=== PATIENT | female | born 1955 | race Caucasian/White ===

== ENCOUNTER 2019-08-24 14:56 | Inpatient (IN) | payer SELFPAY ==
[~2019-08-24] VITALS: Ht 167.6 cm; Wt 38.8 kg
[~2019-08-24 14:56] MED LIST: ANTIDEPRESSANT; BENZ100A PO; CRUTCH4 USE; ESCI5; IBUP800 PO; LORA1 PO; OLAN10; PROACE100 PO; Prednisone20 MG PO; SYMBYAX; Zithromax250 MG PO; [UNRECOGNIZED DRUG - REMARK]
[2019-08-24 15:31] LABS: Source, Urine Voided
[2019-08-24 15:38] LABS: Blood, Urine 1+ (Neg); Glucose Qualitative, Urine Neg (Neg); Ketones, Urine 2+ (Neg); Leukocyte Esterase, Urine 2+ (Neg); Nitrite, Urine Neg (Neg); Protein, Urine 2+ (Neg); Specific Gravity, Urine 1.015 (1.003-1.022); Urobilinogen, Urine 1+ (Normal)
[2019-08-24 15:47] LABS: Appearance, Urine Hazy (Clear); Bilirubin, Urine 1+ (Neg); Color, Urine Yellow (P-Yellow)
[2019-08-24 15:54] LABS: Bacteria Many /hpf; Red Blood Cells, Urine Rare /hpf (0-2); Squamous Epithelial Cells Rare /hpf (Few)
[2019-08-24 15:55] LABS: Mucus Light (0-Heavy)
[2019-08-24 16:00] LABS: Hematocrit 43.1 % (33.0-51.0); Hemoglobin 12.5 g/dL (11.5-16.0); Mean Corpuscular HGB 26.4 pg (26.0-34.0); Mean Corpuscular Volume 91 fL (80-100); Platelet Count 215 K/mm3 (150-400); RDW Coefficient Variation 18.9 % (11.7-14.2); RDW Standard Deviation 61.6 fL (35.1-46.3); Red Blood Cell Count 4.73 M/mm3 (3.80-5.20); White Blood Cell Count 39.81 K/mm3 (4.00-11.30)
[2019-08-24 16:05] LABS: Mean Platelet Volume 13.2 fL (9.1-12.4)
[2019-08-24 16:15] LABS: Alanine Aminotransfer (ALT/SGP 14 U/L (12-78); Albumin, Blood 4.2 g/dL (3.4-5.0); Albumin/Globulin Ratio 1.1 (0.8-1.8); Alk Phos 75 U/L (50-136); Anion Gap 9 mmol/L (6-16); Aspartate Aminotrans (AST/SGOT 18 U/L (12-37); Bilirubin, Total 0.8 mg/dL (0.1-1.0); Blood Urea Nitrogen 25 mg/dL (8-24); CO2, Blood 25 mmol/L (21-32); Calcium, Blood 9.1 mg/dL (8.5-10.1); Chloride, Blood 103 mmol/L (98-108); Creatinine, Blood 0.86 mg/dL (0.40-1.00); Globulin, Blood 3.7 g/dL (2.2-4.0); Glomerular Filtration Rate >60 (60-); Glucose, Blood 141 mg/dL (70-99); Potassium, Blood 4.6 mmol/L (3.5-5.5); Sodium, Blood 137 mmol/L (136-145); Total Protein, Blood 7.9 g/dL (6.4-8.2)
[2019-08-24 16:43] LABS: BASOPHILS PERCENT MAN 0 % (0-2); EOSINOPHILS PERCENT MAN 0 % (0-6); LYMPHOCYTES % ATYPICAL MANUAL 3 % (0-0); LYMPHOCYTES ABSOLUTE MAN 29.85 K/mm3 (0.84-5.20); LYMPHOCYTES PERCENT MAN 72 % (21-46); MONOCYTES ABSOLUTE MAN 0.79 K/mm3 (0.16-1.47); MONOCYTES PERCENT MAN 2 % (4-13); NEUTROPHILS ABSOLUTE MAN 9.15 K/mm3 (1.96-9.15); SEG NEUTROPHILS PERCENT MAN 23 % (41-73); TOTAL CELLS COUNTED 100
[2019-08-24] MEDS ORDERED: Aspir 8181 MG PO (18:20)
[2019-08-25 05:08] LABS: BASOPHILS ABSOLUTE AUTO 0.09 K/mm3 (0.00-0.23); BASOPHILS PERCENT AUTO 0 % (0-2); EOSINOPHILS ABSOLUTE AUTO 0.11 K/mm3 (0.00-0.68); EOSINOPHILS PERCENT AUTO 0 % (0-6); Hematocrit 35.6 % (33.0-51.0); Hemoglobin 10.5 g/dL (11.5-16.0); Mean Corpuscular HGB 26.5 pg (26.0-34.0); Mean Corpuscular HGB Conc 29.5 g/dL (31.5-36.5); Mean Corpuscular Volume 90 fL (80-100); Platelet Count 191 K/mm3 (150-400); RDW Coefficient Variation 18.8 % (11.7-14.2); RDW Standard Deviation 61.2 fL (35.1-46.3); Red Blood Cell Count 3.96 M/mm3 (3.80-5.20); White Blood Cell Count 31.41 K/mm3 (4.00-11.30)
[2019-08-25 05:33] LABS: Anion Gap 6 mmol/L (6-16); Blood Urea Nitrogen 24 mg/dL (8-24); Bun/Creatinine Ratio 29.9 (12.0-20.0); CO2, Blood 28 mmol/L (21-32); Calcium, Blood 8.7 mg/dL (8.5-10.1); Chloride, Blood 103 mmol/L (98-108); Glomerular Filtration Rate >60 (60-); Glucose, Blood 94 mg/dL (70-99); IMMATURE GRAN ABSOLUTE AUTO 0.05 K/mm3 (0.00-0.10); IMMATURE GRAN PERCENT AUTO 0 % (0-1); LYMPHOCYTES ABSOLUTE AUTO 26.78 K/mm3 (0.84-5.20); LYMPHOCYTES PERCENT AUTO 85 % (21-46); MONOCYTES ABSOLUTE AUTO 0.68 K/mm3 (0.16-1.47); MONOCYTES PERCENT AUTO 2 % (4-13); Magnesium, Blood 2.3 mg/dL (1.6-2.4); Mean Platelet Volume 13.4 fL (9.1-12.4); NEUTROPHILS PERCENT AUTO 12 % (41-73); Phosphorus, Blood 3.8 mg/dL (2.5-4.9); Sodium, Blood 137 mmol/L (136-145)
--- NOTE | 2019-08-25 05:37 | NUR ---
SHIFT SUMMARY PT ER ADMIT THIS SHIFT LEUKOCYTOSIS, AND UTI. PT RECEIVED IV ABX WHILE IN THE ER. PER ER REPORT SHE COMPLAINED OF PYURIA. SHE HAS NOT HAD ANY COMPLAINTS OF PAIN FOR ME SINCE HER ADMISSION. ABD IS FIRM AND SEVERELY DISTENDED. SHE REPORTS NO BM FOR A WEEK. PT STARTED ON BOWEL CARE. PT IS A/OX4, PLESANT. VITALS ARE STABLE. ADMISSION COMPLETE. BED IN LOWEST POSITION, CALL LIGHT WITHIN REACH. WILL CONTINUE TO MONITOR AND REPORT TO ONCOMING RN.
--- NOTE | 2019-08-25 14:33 | NUR ---
CAME IN TO CHECK ON PT, SHE STATED SHE FEELS NAUSEATED AND HER BACK HURT. GAVE PT ZOFRAN PER EMAR. SHE DENIED TYLENOL FOR HER BACK. ALSO PROVIDED PT WITH COLD WASHCLOTH, FAN, AND HEATING PAD. TOLD PT SHE MAY WANT TO TRY MIRALAX AFTER ZOFRAN KICKS IN BECAUSE HER NAUSEA MAY BE RELATED TO NOT HAVING A BM FOR A WEEK. PT AGREED. WILL REASSESS NAUSEA AND PROVIDE MIRALAX.
--- NOTE | 2019-08-25 18:13 | NUR ---
SHIFT SUMMARY- NO ACUTE CHANGES T/O SHIFT. NO COMPAINTS OF PAIN BESIDES ACHING IN THE LOWER BACK. HEATING PAD PROVIDED, PT REFUSED TYLENOL. PT REPORTS SOME BURNING WITH URINATION BUT ALSO REPORTS THAT SHE FEELS IT IS GETTING BETTER, AND IS NO LONGER EXPERIENCING PYURIA. ZEFLEX ORDERED FOR UTI. ABD FERM, DISTENDED, AND TENDER. PT STATES NO BM IN A WEEK. MIRALAX ORDERED PRN. DOSE GIVEN AT APPROX 1645. PT REPORTED NAUSEA DURING SHIFT, PRN ZOFRAN PROVIDED. PT ALSO PREFERS MEDS CRUSHED IN APPLESAUCE. SHE STATES SHE CANNOT SWALLOW THEM WHOLE BECAUSE THEY ARE BIG AND SHE IS NOT USED TO IT. PT IS SBA TO BATHROOM. SALINE LOCKED. PT IS COOPERATIVE AND PLEASANT.
--- NOTE | 2019-08-25 18:25 | NUR ---
I CONCUR WITH THIS AUTOMOTIVE WHOLESALE PARTS ADVISOR DOCUMENTATION
[2019-08-26 05:16] LABS: BASOPHILS ABSOLUTE AUTO 0.05 K/mm3 (0.00-0.23); BASOPHILS PERCENT AUTO 0 % (0-2); EOSINOPHILS ABSOLUTE AUTO 0.03 K/mm3 (0.00-0.68); EOSINOPHILS PERCENT AUTO 0 % (0-6); Hematocrit 34.4 % (33.0-51.0); Mean Corpuscular HGB 25.8 pg (26.0-34.0); Mean Corpuscular HGB Conc 29.1 g/dL (31.5-36.5); Mean Corpuscular Volume 89 fL (80-100); Platelet Count 166 K/mm3 (150-400); RDW Coefficient Variation 18.6 % (11.7-14.2); RDW Standard Deviation 59.5 fL (35.1-46.3); Red Blood Cell Count 3.88 M/mm3 (3.80-5.20); White Blood Cell Count 24.48 K/mm3 (4.00-11.30)
[2019-08-26 05:32] LABS: Anion Gap 3 mmol/L (6-16); Blood Urea Nitrogen 21 mg/dL (8-24); Bun/Creatinine Ratio 28.1 (12.0-20.0); CO2, Blood 31 mmol/L (21-32); Calcium, Blood 8.3 mg/dL (8.5-10.1); Chloride, Blood 105 mmol/L (98-108); Creatinine, Blood 0.75 mg/dL (0.40-1.00); Glomerular Filtration Rate >60 (60-); Glucose, Blood 109 mg/dL (70-99); Sodium, Blood 139 mmol/L (136-145)
--- NOTE | 2019-08-26 05:32 | NUR ---
SHIFT SUMMARY PT HAS RESTED MOST OF THE NIGHT. PT HAD AN EPISODE OF NAUSEA WITH A LARGE AMOUNT OF EMESIS AT THE BEGINNING OF THE SHIFT. PT VOMITED ON THE FLOOR SO IT WAS NOT MEASURED. I ATTEMPTED TO GIVE PT HER PILLS AT HS, SHE ATTEMPTED TO TAKE THE STOOL SOFTNERS BUT IMMEDIATELY THREW THEM UP. SHE THEN REFUSED TO TAKE HER MEDICATIONS. MEDICATED WITH IV ZOFRAN X1 WITH EFFECT. PT HAS NOT HAD ANY MORE EPISODES OF N/V SINCE. PT REPORTS THAT SHE STILL HAS NOT HAD BM, DESPITE MIRALAX. ABD REMAINS FIRM AND DISTENDED. PT DENIES PAIN. VITALS ARE STABLE. OVERALL RESTFUL NIGHT FOR PT. POSSIBLE DC TODAY. BED IN LOWEST POSITION, CALL LIGHT WITHIN REACH. WILL CONTINUE TO MONITOR AND REPORT TO ONCOMING RN.
[2019-08-26 05:37] LABS: IMMATURE GRAN ABSOLUTE AUTO 0.03 K/mm3 (0.00-0.10); IMMATURE GRAN PERCENT AUTO 0 % (0-1); LYMPHOCYTES ABSOLUTE AUTO 20.11 K/mm3 (0.84-5.20); LYMPHOCYTES PERCENT AUTO 82 % (21-46); MONOCYTES ABSOLUTE AUTO 0.58 K/mm3 (0.16-1.47); MONOCYTES PERCENT AUTO 2 % (4-13); Mean Platelet Volume 13.1 fL (9.1-12.4); NEUTROPHILS ABSOLUTE AUTO 3.68 K/mm3 (1.96-9.15); NEUTROPHILS PERCENT AUTO 15 % (41-73)
--- NOTE | 2019-08-26 14:13 | NUR ---
Initial spiritual care note: Carli was pleasantly dismissive of pastoral care. Advised I would remain available.
--- NOTE | 2019-08-26 19:11 | NUR ---
SHIFT SUMMARY PT ALERT AND ORIENTED THIS SHIFT. PT INDEPENDENT IN THE ROOM. PT'S STOMACH DISTENDED AND TENDER THROUGHOUT THIS SHIFT. PT REPORTS NO BM FOR 7 DAYS. MIRILAX AND LACTALOSE ADMINISTERED PER EMAR. PT VOMITED 1X THIS AFTERNOON, MEDICATED WITH ZOFRAN. PT AMBULATED IN THE MOLINA TO HELP PROMOTE GI STIMULATION. PT CURRENTLY RESTING IN BED.
[2019-08-27 04:49] LABS: BASOPHILS ABSOLUTE AUTO 0.05 K/mm3 (0.00-0.23); BASOPHILS PERCENT AUTO 0 % (0-2); EOSINOPHILS ABSOLUTE AUTO 0.01 K/mm3 (0.00-0.68); EOSINOPHILS PERCENT AUTO 0 % (0-6); Hematocrit 35.3 % (33.0-51.0); Hemoglobin 10.5 g/dL (11.5-16.0); Mean Corpuscular HGB 26.7 pg (26.0-34.0); Mean Corpuscular HGB Conc 29.7 g/dL (31.5-36.5); Mean Corpuscular Volume 90 fL (80-100); Mean Platelet Volume 12.9 fL (9.1-12.4); Platelet Count 195 K/mm3 (150-400); RDW Coefficient Variation 18.5 % (11.7-14.2); RDW Standard Deviation 59.7 fL (35.1-46.3); Red Blood Cell Count 3.93 M/mm3 (3.80-5.20); White Blood Cell Count 27.23 K/mm3 (4.00-11.30)
[2019-08-27 04:51] LABS: IMMATURE GRAN ABSOLUTE AUTO 0.04 K/mm3 (0.00-0.10); IMMATURE GRAN PERCENT AUTO 0 % (0-1); LYMPHOCYTES ABSOLUTE AUTO 22.66 K/mm3 (0.84-5.20); LYMPHOCYTES PERCENT AUTO 83 % (21-46); MONOCYTES ABSOLUTE AUTO 0.52 K/mm3 (0.16-1.47); MONOCYTES PERCENT AUTO 2 % (4-13); NEUTROPHILS ABSOLUTE AUTO 3.95 K/mm3 (1.96-9.15); NEUTROPHILS PERCENT AUTO 15 % (41-73)
[2019-08-27 05:12] LABS: BASOPHILS PERCENT MAN 0 % (0-2); EOSINOPHILS PERCENT MAN 0 % (0-6); LYMPHOCYTES PERCENT MAN 90 % (21-46); MONOCYTES PERCENT MAN 0 % (4-13); NEUTROPHILS ABSOLUTE MAN 2.72 K/mm3 (1.96-9.15); SEG NEUTROPHILS PERCENT MAN 10 % (41-73); TOTAL CELLS COUNTED 100
[2019-08-27] MEDS ORDERED: CEPH500 PO (09:20)
[2019-08-27] MEDS ORDERED: SENNA PLUS (09:22)
[2019-08-27] MEDS ORDERED: MIRALAX17 GM PO (09:25)
[2019-08-27] MEDS ORDERED: HIGH POTENCY P1 EAC1 PO (09:25)
--- NOTE | 2019-08-27 10:44 | NUR ---
Pt resting in bed upon arrival. Pt reports 8/10 pain in her abdomen mainly due to pressure build up. Pt denies dyspnea and anxiety. Pt's abdomen is significantly distended and firm. Pt reports pain increases when pressing on belly. Pt reports living with roomates and is independent of her ADLs. Pt reports having children all of whom live in [facility]. Pt has not spoken with children in 2 years. Discussed plan for GI MD to consult and Pt is agreeable. Pt reports no concerns at this time. Spoke with Bedside RN Lani, discussed case, concerns, and relayed Pt's pain. Lani expresses concerns regarding Pt appearing significantly frail and cachetic. Palliative Care will remain available.
[2019-08-27 17:45] LABS: Free Thyroxine 1.14 ng/dL (0.70-1.60)
[2019-08-27 17:46] LABS: Thyroid Stimulating Hormone 3.63 uIU/mL (0.360-4.800)
--- NOTE | 2019-08-27 18:53 | NUR ---
SHIFT SUMMARY SANDEEP WAS VERY NAUSEOUS AND PAINFUL THIS SHIFT. THREW UP HER MORNING MEDS. CALLED DR DRUMMOND, GOT GI CONSULT. TO HAVE CT IN THE MORNING. CT AND DR DRUMMOND AWARE THAT PT MAY NOT BE ABLE TO HOLD DOWN CONTRAST. PALLIATIVE CARE VISITED. IV FENTANYL AND IV NAUSEA MEDS SOMEWHAT HELPFUL. NPO. MEMORY ISSUES NOTED, UNABLE TO RETRAIN NEW INFORMATION WELL. SOAP MONIQUE ENEMA DONE, NOT EFFECTIVE. SUPPOSITORY PLACED. IVF RUNNING. REPORT GIVEN TO JOON RN
--- NOTE | 2019-08-28 03:56 | NUR ---
PT continues with no significant BM. PT NPO for SBO & has AM CT abd pelvis with contrast rx. PT had small pellet of dark brown BM after soap suds enema & dulcolax supp. She was medicated withzofran & compazine prior to drinking CT prep & bowel care. Started on IV fluid with NPO status. PT continues weak malnourished wasting appearance. ABD firm distended but has more active bowel sounds . HX of prior bowel obstruction or ileus. No vomiting yet this shift.
--- NOTE | 2019-08-28 09:00 | NUR ---
DR KEMP STATES SURG IN FEW HOURS. KEEP NPO
--- NOTE | 2019-08-28 09:50 | NUR ---
PT PLEASANT COOP , PRESENTS A/O X3, SOME CONCRETE . SOME ABD PN. STATES IS OKAY. SEVERE ABD DISTENTION, TENDER PALP H/R REG, NO MURMER NOTED. NO TLE. LUNGS CLEAR, BUT DIM T/O. RESP EASY UNLABORED ON RA. BT HYPOACTIVE. ABD FIRM SEVERE LARGE. PT STATES NO BM 1 + WEEK. VOIDS SBA TO BATHROOM. PT STATES OKAY. NO OTHER CONCERNS AT THIS TIME.
--- NOTE | 2019-08-28 14:21 | NUR ---
Surgical site prepped with 2% Chlorhexidine cloth wipe. History, Chart, Medications and Allergies reviewed before start of procedure. Patient confirms NPO status and agrees with scheduled surgery. Pre-Op teaching done. Pt verbalizes understanding.
--- NOTE | 2019-08-28 15:47 | NUR ---
PT TO [id number]
--- NOTE | 2019-08-28 17:23 | NUR ---
PT PLEASANT TODAY. NO BM TODAY. IS PRESENTLY IN DAY SURG. DR KEMP HAS SEEN AND IS PERFORMING SURG. DR BOOTH HAS SEEN. WILL CALL REPORT TO VTC TECHNICIAN APPROPRIATE
--- NOTE | 2019-08-28 21:02 | NUR ---
ASSUMED CARE AT 2014 PT ARRIVED AT 2014. ORAL AIRWAY IN PLACE. O2 SAT 100%. BP STABE, SEE FLOW SHEET. NSR, HR 90'S. AT 2024 NRB DUE TO O2 SAT AT 82%. PT RECOVERED TO 100% ONCE PT WAS MOVING ALL EXTREMITIES AND MORE ALERT. ORAL AIRWAY REMOVED AT 2039. PT MEDICATED FOR NAUSEA AND PAIN. REMAINS ON NRB AT 15L. YE DRAINING DARK TEA URINE. OG CLAMPED AT THIS TIME.
--- NOTE | 2019-08-28 22:10 | NUR ---
REPORTED OFF TO SILVIANO RN ON SURGICAL FLOOR. PT PULLED OUT NG TUBE. O2 REQUIREMENTS INCREASING, WILL STAY ON UNIT UNTIL RESPIRATORY STATUS IMPROVES.
--- NOTE | 2019-08-28 22:49 | NUR ---
PT TRANSFERRING OUT TO ROOM 208 CALL TO PRESTON SHORE TO NOTIFY HER OF OXYGEN REQUIREMENTS. CURRENTLY ON 6L VIA OXYMIZER WITH BIOX 97%. MEDICATED WITH 12.5MCG OF FENTANYL PER POST-ANESTHESIA ORDERS. PT IS ALERT AND ORIENTED AND ABLE TO FOLLOW COMMANDS. VERY WEAK COUGH D/T PAIN. HOWEVER, PT IS ABLE TO TAKE DEEP BREATHS UPON COMMAND. BASELINE IS ROOM AIR; HOWEVER, REQUIRING OXYGEN AT THIS TIME WITH FLUCTUATIONS IN OXYGEN SATURATIONS. LUNG SOUNDS REMAIN COARSE T/O ALL LOBES. VSS; SEE FLOWSHEET.
--- NOTE | 2019-08-28 23:35 | NUR ---
2300-PT ARRIVED TO ROOM FROM PACU S/P RIGHT LARRY COLECTOMY. PT IS ALERT BUT DOES DOZE OCCASIONALY. PAIN TOLERABLE, NO N/V. ABD WITH PROVENA WOUND VAC WITH SCANT SS DRAINAGE WHICH WAS OUTLINED. PT DID PULL OUT NGT IN PACU. LS ARE VERY COARSE AND WET, CURRENTLY ON 6L OXYMIZER, ENCOURAGED COUGHING, INSTRUCTED HOW TO SPLINT ABD. I.S. GIVEN AND AT BEDSIDE. 5-NEEDED TO INCREASE OXYGEN TO 8L, CALLED KERVIN PAPER MACHINE OPERATOR AND INFORMED ON CHANGE, ORDER OBTAINED FOR BD PROTOCOL. RT WAS IN ROOM ASSESSING PT AT THIS TIME [id number] GOING AT THIS TIME. O2 SATS 98%
--- NOTE | 2019-08-29 01:27 | NUR ---
ASSUMED CARE OF PT, REPORT REC FROM PRESTON SHORE. PT SLEEPING IN BED, NO DISTRESS NOTED. RESP EVEN, PT W/WEAK COUGH, SATS 99% ON 8L OXYMIZER. PLAN TO TITRATE O2 PT NADER. WILL CONT TO MONITOR AND TX PER ORDERS.
--- NOTE | 2019-08-29 02:40 | NUR ---
O2 SATS: PT SLEEPING, SATS 82% ON 7LOXYMIZER. PT AWAKENS EASILY. O2 INCREASED UP TO 10L, SATS VERY SLOWLY INCREASED TO 86%. RT CALLED IN TO ROOM. NONREBREATHER PLACED @ 15LO2. SATS SLOWLY INC AFTER APPX 3-5 MIN TO 90-93% CALL PLACED TO MD, NEW ORDER FOR ABX, SX AND BIPAP PER RT.
[2019-08-29 02:51] LABS: PCO2 Arterial 50.5 mmHg (35-45); PO2 Arterial 61.2 mmHg (80-100); pH Blood Arterial 7.36 (7.35-7.45)
--- NOTE | 2019-08-29 03:10 | NUR ---
RT IN ROOM, REPOSITIONED PT, SATS INC TO 94% VIA 6-8L OXYMIZER, SATS SLOWLY DEC TO 84% VIA 15L NON REBREATHER. CPAP PLACED PER RT W/12L BLEED IN, SATS 92-94% HOSPITALIST UPDATED, VITALS AND I/O REVIEWED. NEW ORDER FOR CXR, LASIX AND AM LABS. WILL CONT TO CLOSELY MONITOR.
[2019-08-29 04:55] LABS: BASOPHILS ABSOLUTE AUTO 0.09 K/mm3 (0.00-0.23); BASOPHILS PERCENT AUTO 0 % (0-2); EOSINOPHILS PERCENT AUTO 0 % (0-6); Hematocrit 37.9 % (33.0-51.0); Hemoglobin 11.1 g/dL (11.5-16.0); IMMATURE GRAN ABSOLUTE AUTO 0.04 K/mm3 (0.00-0.10); IMMATURE GRAN PERCENT AUTO 0 % (0-1); LYMPHOCYTES ABSOLUTE AUTO 33.88 K/mm3 (0.84-5.20); LYMPHOCYTES PERCENT AUTO 88 % (21-46); MONOCYTES PERCENT AUTO 1 % (4-13); Mean Corpuscular HGB 26.6 pg (26.0-34.0); Mean Corpuscular HGB Conc 29.3 g/dL (31.5-36.5); Mean Corpuscular Volume 91 fL (80-100); Mean Platelet Volume 12.6 fL (9.1-12.4); NEUTROPHILS ABSOLUTE AUTO 4.02 K/mm3 (1.96-9.15); NEUTROPHILS PERCENT AUTO 11 % (41-73); Platelet Count 258 K/mm3 (150-400); RDW Coefficient Variation 18.8 % (11.7-14.2); RDW Standard Deviation 60.7 fL (35.1-46.3); Red Blood Cell Count 4.18 M/mm3 (3.80-5.20); White Blood Cell Count 38.33 K/mm3 (4.00-11.30)
[2019-08-29 05:14] LABS: Alanine Aminotransfer (ALT/SGP 15 U/L (12-78); Albumin, Blood 2.3 g/dL (3.4-5.0); Albumin/Globulin Ratio 0.9 (0.8-1.8); Alk Phos 43 U/L (50-136); Anion Gap 9 mmol/L (6-16); Aspartate Aminotrans (AST/SGOT 22 U/L (12-37); Bilirubin, Total 0.5 mg/dL (0.1-1.0); Blood Urea Nitrogen 21 mg/dL (8-24); CO2, Blood 24 mmol/L (21-32); Calcium, Blood 7.3 mg/dL (8.5-10.1); Chloride, Blood 104 mmol/L (98-108); Creatinine, Blood 0.68 mg/dL (0.40-1.00); Globulin, Blood 2.6 g/dL (2.2-4.0); Glomerular Filtration Rate >60 (60-); Glucose, Blood 171 mg/dL (70-99); Phosphorus, Blood 3.2 mg/dL (2.5-4.9); Potassium, Blood 4.7 mmol/L (3.5-5.5); Sodium, Blood 137 mmol/L (136-145); Total Protein, Blood 4.9 g/dL (6.4-8.2)
--- NOTE | 2019-08-29 06:38 | NUR ---
POD 1 S/P LARRY COLECTOMY. PT CONT TO HAVE LOW O2 SATS, REQ 10L VIA CPAP TO MAINTIAN SATS >90%. LASIX GIVEN PER ORDERS, PT HAD 680ML URINE OUT AFTER LASIX GIVEN. URINE METAL CAN INSPECTOR IN COLOR THIS AM. VALENTE DRESSING INTACT W/APPX DIME SIZED AREA OF SHADOWING NOTED; SEAL AND SX MAINTAINED. BT HYPO, PT DENIED N/V/FLATUS. PAIN MGD PER EMAR W/REP RELIEF. PT NPO PER ORDERS, CLINIMIX CONT. CONT OX IN PLACE, WILL CONT TO MONITOR UNTIL REP GIVEN TO ONCOMING RN.
--- NOTE | 2019-08-29 09:44 | NUR ---
08/29/19 0944 Kym Phan VERIFICATIONS: EDIT CHART.
--- NOTE | 2019-08-29 11:12 | NUR ---
CALL TO DR DRUMMOND RE: ORDER FOR PO KEFLEX, PATIENT IS NPO AFTER ABD SURGERY. HE WILL SEE PATIENT.
--- NOTE | 2019-08-29 13:29 | NUR ---
Pt resting in bed upon arrival. Pt reports 8/10 pain from surgical site. Pt appears withdrawn and does not engage in conversation. Pt reports having children but denies need to contact. Received verbal permission to speak with friend Osmin and provide update. Pt reports no other concerns at this time. Called and spoke with Osmin. Provided update and answered questions. Inquired about Pt's children. Kayodefarooqmarzena reports Carli (Pt) has lived with her for over 6 years and there has been no communication between Pt and her sons. Osmin expresses appreciation of call. Spoke with Dr Livingston and discussed case. Spoke with Bedside PRESTON Jarvis and discussed case.
--- NOTE | 2019-08-29 17:54 | NUR ---
SHIFT SUMMARY PATIENT HAS DENIED ABD PAIN OR NAUSEA. C/O BACK PAIN, PATIENT REPOSITIONED AND K PAD APPLIED. ABD DRESSING D&I. DENIES SOB. O2 @ 7.5 L PER OXIMIZER; BIOX 95%. CLINIMIX INFUSING PER ORDER. FC PATENT AND DRAINING. CONT TO MONITOR.
--- NOTE | 2019-08-29 20:30 | NUR ---
PT WAS MEDICATED WITH 25MCG FENT. PT REMAINED AWAKE BUT OXYGEN SATS DROPPED TO 84%. TITRATED UP TO 15L BLEED IN TO CPAP TO MAINTAIN SPO2 >90. DID CALL RT AND INFORMED OF CHANGE. WILL CONT TO MONITOR. PT WAKES EASILY. STATES PAIN IS BETTER.
--- NOTE | 2019-08-30 01:51 | NUR ---
PT RESTING WELL. ABLE TO TITRATE THE OXYGEN BACK DOWN TO 6L BLEED IN ON CPAP.
--- NOTE | 2019-08-30 03:30 | NUR ---
SUMMARY PT DID FAIR DURING NIGHT. PAIN WAS MANAGED WITH 25MCG OF FENT HOWEVER IT CAUSED A DROP IN SPO2. WAS ABLE TO TITRATE OXYGEN BACK DOWN TO 4L BLEED IN CPAP. TRYING TO MANANGE PAIN WITH REPOSITIONING OR HEAT. HAS DENIED N/V. CONT IV CLINIMIX, NPO. ENCOURAGED IS, TCDB AND MOBILITY. CALL LIGHT IN REACH, WILL CONT TO MONITOR T/O REST OF SHIFT AND WILL REPORT OFF.
[2019-08-30 04:28] LABS: Hemoglobin 9.6 g/dL (11.5-16.0); Mean Corpuscular HGB 26.2 pg (26.0-34.0); Mean Corpuscular HGB Conc 29.1 g/dL (31.5-36.5); Mean Corpuscular Volume 90 fL (80-100); Mean Platelet Volume 12.5 fL (9.1-12.4); Platelet Count 166 K/mm3 (150-400); RDW Coefficient Variation 18.7 % (11.7-14.2); RDW Standard Deviation 61.1 fL (35.1-46.3); Red Blood Cell Count 3.67 M/mm3 (3.80-5.20); White Blood Cell Count 30.65 K/mm3 (4.00-11.30)
[2019-08-30 05:21] LABS: BAND PERCENT MAN 3 % (0-8); BASOPHILS PERCENT MAN 0 % (0-2); EOSINOPHILS PERCENT MAN 0 % (0-6); LYMPHOCYTES ABSOLUTE MAN 24.52 K/mm3 (0.84-5.20); LYMPHOCYTES PERCENT MAN 80 % (21-46); METAMYELOCYTE PERCENT MAN 1 % (0-0); MONOCYTES ABSOLUTE MAN 1.22 K/mm3 (0.16-1.47); MONOCYTES PERCENT MAN 4 % (4-13); NEUTROPHILS ABSOLUTE MAN 4.59 K/mm3 (1.96-9.15); SEG NEUTROPHILS PERCENT MAN 12 % (41-73); TOTAL CELLS COUNTED 100
--- NOTE | 2019-08-30 16:39 | NUR ---
FC D/C'D. ATTENDS [facility]. PATIENT DENIES PAIN WITH TURNING.
--- NOTE | 2019-08-30 20:17 | NUR ---
SHIFT SUMMARY PATIENT MORE ALERT AND STRONGER TODAY. SATS 94% ON 2L PER OXIMIZER. C&DB ENCOURAGED. COCCYX AND HEELS CLEAR, HEELS FLOATED. PATIENT TAKING CL FOR DINNER W/O C/O. PATIENT AGREEABLE TO OOB TOMORROW. REQUESTED DAY RN OBTAIN ORDER FOR PT CONSULT. NO C/O AT THIS TIME.
[2019-08-31 04:42] LABS: Hematocrit 27.4 % (33.0-51.0); Hemoglobin 8.3 g/dL (11.5-16.0); Mean Corpuscular HGB 27.2 pg (26.0-34.0); Mean Corpuscular HGB Conc 30.3 g/dL (31.5-36.5); Mean Corpuscular Volume 90 fL (80-100); Mean Platelet Volume 12.5 fL (9.1-12.4); Platelet Count 149 K/mm3 (150-400); RDW Coefficient Variation 18.9 % (11.7-14.2); RDW Standard Deviation 61.7 fL (35.1-46.3); Red Blood Cell Count 3.05 M/mm3 (3.80-5.20); White Blood Cell Count 22.38 K/mm3 (4.00-11.30)
[2019-08-31 05:01] LABS: Anion Gap 3 mmol/L (6-16); Blood Urea Nitrogen 24 mg/dL (8-24); Bun/Creatinine Ratio 41.9 (12.0-20.0); CO2, Blood 31 mmol/L (21-32); Calcium, Blood 7.8 mg/dL (8.5-10.1); Chloride, Blood 103 mmol/L (98-108); Creatinine, Blood 0.57 mg/dL (0.40-1.00); Glomerular Filtration Rate >60 (60-); Glucose, Blood 110 mg/dL (70-99); Potassium, Blood 3.8 mmol/L (3.5-5.5); Sodium, Blood 137 mmol/L (136-145)
[2019-08-31 05:50] LABS: BASOPHILS PERCENT MAN 0 % (0-2); EOSINOPHILS PERCENT MAN 0 % (0-6); LYMPHOCYTES ABSOLUTE MAN 18.57 K/mm3 (0.84-5.20); LYMPHOCYTES PERCENT MAN 83 % (21-46); MONOCYTES ABSOLUTE MAN 0.22 K/mm3 (0.16-1.47); MONOCYTES PERCENT MAN 1 % (4-13); NEUTROPHILS ABSOLUTE MAN 3.58 K/mm3 (1.96-9.15); SEG NEUTROPHILS PERCENT MAN 16 % (41-73); TOTAL CELLS COUNTED 100
--- NOTE | 2019-08-31 05:51 | NUR ---
SHIFT SUMMARY POD 3 W/ NO ACUTE CHANGES T/O SHIFT. A/O W/VSS, SPO2 AT 94% ON 2L. DENIED PAIN OR NEED FOR ANY PAIN MEDICATION. REPOSITIONED FREQUENTLY DURING NIGHT. 2 INCONT VOIDS, ATTENDS CHANGED PRN. NADER SMALL AMOUNTS OF CL; CLINIMIX INFUSING PER ORDERS. APPEARS TO HAVE SLEPT WELL T/O SHIFT. WILL DISCUSS OBTAINING PT/OT EVALUATION WITH DAY NURSE, PER PATIENT REQUEST. PT IS CURRENTLY RESTING IN BED WITH CALL LIGHT IN REACH. WILL CONT TO MONITOR AND GIVE REPORT TO ONCOMING RN.
--- NOTE | 2019-08-31 07:13 | NUR ---
ASSUMED PATIENT CARE. PATIENT SLEEPING COMFORTABLY IN BED, NO SIGNS OF ACUTE DISTRESS, WCTM.
--- NOTE | 2019-08-31 18:01 | NUR ---
NO ACUTE EVENTS THIS SHIFT. PATIENT HAS SHOWN SLOW IMPROVEMENT IN PO INTAKE OVER COURSE OF SHIFT, NOW ON FULL LIQUID DIET. PATIENT CONTINUES TO HAVE INCONTINENT VOIDS AND SMALL BOWEL MOVEMENTS. NO NEW DISCHARGE NOTED AT SURGICAL SITE. HYPOACTIVE BOWEL SOUNDS PRESENT. PLAN IS TO CONTINUE TO ENCOURAGE PO INTAKE AND POTENTIAL DISCHARGE TO SNF.
--- NOTE | 2019-08-31 18:58 | NUR ---
RELINQUISHED PATIENT CARE.
--- NOTE | 2019-09-01 03:08 | NUR ---
SHIFT SUMMARY A/O, ABLE TO MAKE NEEDS KNOWN. COOPERATIVE WITH CARE. ANSWERS QUESTIONS APPROPRIATELY. NO C/O PAIN, STATES MILD DISCOMFORT TO ABDOMEN; HOWEVER DECLINES NEED FOR PHARMALOGIC INTERVENTION. REMAINS ON 2L VIA OXYMIZER, SPO2 >90%; RESPIRATIONS EVEN WITH EQUAL RISE/FALL. MOIST/WEAK/OCCASIONALLY PRODUCTIVE COUGH NOTED. APPEARED TO REST MUCH OF SHIFT. NO ACUTE CHANGES NOTED OVERNIGHT. BED IN LOWEST POSITION. CALL LIGHT AND BELONGINGS WITHIN REACH. WCTM. REPORT TO ONCOMING RN.
[2019-09-01 12:14] LABS: Percent Saturation 7.9 % (15.0-50.0)
--- NOTE | 2019-09-01 17:12 | NUR ---
SHIFT SUMMARY PT HAS DONE WELL THOUGH THE DAY. MINIMAL PAIN NOTED. TOLERATING PO INTAKE. DIET WILL BE INCREASED TO [facility] FOR DINNER. PT IS PASSING STOOL & FLATUS. SHE DENIES NAUSEA. PO FLUIDS ENC. Q2 TURNS & ATTENDS CHANGES PROVIDED. BED BATH, LOTION AND LINEN CHANGED TODAY. CLINIMIX D/C'D PER HOSP ORDERS. VALENTE DRSG REMAINS DRY/INTACT. CALL LIGHT IN REACH, TM
[2019-09-02 04:14] LABS: BASOPHILS ABSOLUTE AUTO 0.03 K/mm3 (0.00-0.23); BASOPHILS PERCENT AUTO 0 % (0-2); EOSINOPHILS ABSOLUTE AUTO 0.07 K/mm3 (0.00-0.68); EOSINOPHILS PERCENT AUTO 0 % (0-6); Hematocrit 27.9 % (33.0-51.0); Mean Corpuscular HGB 26.3 pg (26.0-34.0); Mean Corpuscular HGB Conc 28.7 g/dL (31.5-36.5); Mean Corpuscular Volume 92 fL (80-100); Mean Platelet Volume 12.2 fL (9.1-12.4); Platelet Count 160 K/mm3 (150-400); RDW Standard Deviation 63.8 fL (35.1-46.3); Red Blood Cell Count 3.04 M/mm3 (3.80-5.20); White Blood Cell Count 17.23 K/mm3 (4.00-11.30)
[2019-09-02 04:21] LABS: IMMATURE GRAN ABSOLUTE AUTO 0.04 K/mm3 (0.00-0.10); IMMATURE GRAN PERCENT AUTO 0 % (0-1); LYMPHOCYTES ABSOLUTE AUTO 13.56 K/mm3 (0.84-5.20); LYMPHOCYTES PERCENT AUTO 79 % (21-46); MONOCYTES PERCENT AUTO 2 % (4-13); NEUTROPHILS ABSOLUTE AUTO 3.13 K/mm3 (1.96-9.15); NEUTROPHILS PERCENT AUTO 18 % (41-73)
--- NOTE | 2019-09-02 05:23 | NUR ---
SHIFT SUMMARY HAS RESTED WELL WITH NO ACUTE CHANGES NOTED THROUGHOUT SHIFT. CONTINUES TO BE AAO X3, PURCELL, FOLLOWS ALL COMMANDS. HAS RECEIVED PO PAIN MEDS X1 THIS SHIFT AND DENIES PAIN AT THIS TIME. DRESSING TO RIGHT HIP C/D/I. TURN Q2HRS OFFERED, BUT PT REFUSED. DENIES FURTHER NEEDS OR WANTS AT THIS TIME. SAFETY MEASURES IN PLACE. WILL GIVE HAND OFF TO ONCOMING SHIFT USING SBAR DURING BEDSIDE REPORT.
--- NOTE | 2019-09-02 05:33 | NUR ---
SHIFT SUMMARY HAS RESTED WELL WITH NO ACUTE CHANGES NOTED THROUGHOUT SHIFT. CONTINUES TO BE AAO X3, PURCELL, FOLLOWS ALL COMMANDS. HAS NOT RECIEVED ANY PAIN MEDS THIS SHIFT AND DENIES PAIN AT THIS TIME. DRESSING TO MIDLINE WITH VALENTE IN PLACE. TURN Q2HRS FPR COMFORT. DENIES FURTHER NEEDS OR WANTS AT THIS TIME. SAFETY MEASURES IN PLACE. WILL GIVE HAND OFF TO ONCOMING SHIFT USING SBAR DURING BEDSIDE REPORT.
--- NOTE | 2019-09-02 13:37 | NUR ---
PATIENT ON OXYGEN HERE AND NOT ON AT HOME. ASKED IF NEEDS HOME O2 EVAL. STS YES. WILL ORDER.
[2019-09-02] MEDS ORDERED: LACT PO (14:35)
--- NOTE | 2019-09-02 15:17 | NUR ---
AWAITING HOME O2 EVAL. PATIENT DESATURATED GOING TO BATHROOM AND DOES NOT NORMALLY USE OXYGEN AT HOME. ATTEMPT TO MAKE PCP APPT AT [facility] AND VOICE MAIL FOR OFFICE SAID LEAVE A MESSAGE.
--- NOTE | 2019-09-02 16:24 | NUR ---
REVIEW D'C W/PATIENT. AWARE HAS MEDS AT [facility] AND REVIEW WHAT THEY ARE. AWARE NEEDS TO GO TO [facility] TO SIGN UP FOR INSURANCE. THIS RN UNABLE TO MAKE F/U APPT AT [facility] HAVE CALLED 3 TIMES AND SAYS "PLEASE LEAVE A MESSAGE". UNABLE TO ASK ABOUT SLIDING SCALE PAY ETC. PATIENT HAS NUMBER FOR AND WILL CALL TOMORROW FOR F/U APPT. AWARE TO KEEP DORA CLEAN AND DRY. NO SIGNS OF INFECTION OR DRAINAGE. WANTS TO WAIT TILL RIDE GETS HERE BEFORE GETTING DRESSED WHICH WILL BE ABOUT 1730.
--- NOTE | 2019-09-02 17:14 | NUR ---
Pt resting in bed upon arrival. Offered therapeutic listening and encouraged Pt to discuss concerns and fears. Pt reports just being happy to discharge from hospital and to go home. Encouraged Pt to consider the importance of her cancer and to follow up with oncology and establish with PCP. Pt's level of understanding is low. Pt reports no concerns at this time. Spoke with Bedside RN Noemi and discussed case. Noemi reports Pt will be picked up by room mate and she will encouraged follow up and establishing with PCP and insurance. Reviewed Tahira Pack's note. Plan is for her to follow up later this week with Pt. Spoke with Dr Livingston and discussed case. Palliative Care will remain available.
--- NOTE | 2019-09-02 17:54 | NUR ---
VALERIA ROE WILL F/U W/PATIENT TO MAKE SURE SHE GETS PCP APPT AND ONCOLOGY F/U.
== END 2019-09-02 18:09 | disposition home or self-care (01) | DRG 330 ==
LOC: ER 14:56 → MEDS 18:01 → ER 20:44 → MEDS 21:11 → ENPENDDIS 08-27 09:00 → SURS 08-28 09:11 → MEDS 08-28 09:11 → SURS 08-28 18:10
PROVIDERS: Emergency Medicine; Internal Medicine; Internal Medicine Gastroenterology; Surgery; ADMIT Internal Medicine
PROC: 0DTF0ZZ Resection of Right Large Intestine, Open Approach (ICD-10-PCS; principal; 2019-08-28 14:30)
DX: C18.9 Malignant neoplasm of colon, unspecified (principal); Z68.1 Body mass index [BMI] 19.9 or less, adult; R18.8 Other ascites; J44.9 Chronic obstructive pulmonary disease, unspecified; Z87.891 Personal history of nicotine dependence; F31.9 Bipolar disorder, unspecified; K59.09 Other constipation; K63.89 Other specified diseases of intestine; C76.8 Malignant neoplasm of other specified ill-defined sites
CPT/HCPCS: 31720; 36415; 36600; 71046; 74019; 74177; 80048; 80053; 81001; 82330; 82607; 82728; 82746; 82803; 83540; 83550; 83690; 83735; 83880; 84100; 84439; 84443; 85025; 87077; 87086; 87186; 88309; 94640; 94660; 94760; 94761; 94762; 96361; 96365-59; 96375; 96376; 97110; 97116; 97161; 97530; 99284-25; A9270-GY; G0378; J0330; J0694; J0696; J0780; J1650; J1940; J2250; J2405; J2710; J3010; J7120; Q9967; U0002

== ENCOUNTER 2019-10-25 17:54 | Inpatient (IN) | payer SELFPAY ==
[~2019-10-25] VITALS: Ht 167.6 cm; Wt 44.3 kg
[~2019-10-25 17:54] MED LIST changes: +Aspir 8181 MG PO; +CEPH500 PO; +DOCUZEN 8.6-501 EACH PO; +HIGH POTENCY P1 EAC1 PO; +LACT PO; +MIRALAX17 GM PO
[2019-10-25 18:36] LABS: Hematocrit 39.8 % (33.0-51.0); Hemoglobin 11.8 g/dL (11.5-16.0); Mean Corpuscular HGB 27.3 pg (26.0-34.0); Mean Corpuscular HGB Conc 29.6 g/dL (31.5-36.5); Mean Corpuscular Volume 92 fL (80-100); Platelet Count 276 K/mm3 (150-400); RDW Coefficient Variation 16.3 % (11.7-14.2); RDW Standard Deviation 55.5 fL (35.1-46.3); Red Blood Cell Count 4.33 M/mm3 (3.80-5.20); White Blood Cell Count 25.29 K/mm3 (4.00-11.30)
[2019-10-25 19:07] LABS: Alanine Aminotransfer (ALT/SGP 17 U/L (12-78); Albumin/Globulin Ratio 1.2 (0.8-1.8); Alk Phos 75 U/L (50-136); Anion Gap 4 mmol/L (6-16); Aspartate Aminotrans (AST/SGOT 13 U/L (12-37); Bilirubin, Total 0.5 mg/dL (0.1-1.0); Blood Urea Nitrogen 31 mg/dL (8-24); Bun/Creatinine Ratio 37.1 (12.0-20.0); CO2, Blood 29 mmol/L (21-32); Calcium, Blood 9.6 mg/dL (8.5-10.1); Chloride, Blood 108 mmol/L (98-108); Creatinine, Blood 0.84 mg/dL (0.40-1.00); Globulin, Blood 3.2 g/dL (2.2-4.0); Glomerular Filtration Rate >60 (60-); Glucose, Blood 101 mg/dL (70-99); Potassium, Blood 4.3 mmol/L (3.5-5.5); Sodium, Blood 141 mmol/L (136-145); Total Protein, Blood 7.2 g/dL (6.4-8.2); Troponin I <0.015 ng/mL (0.000-0.040)
[2019-10-25 19:17] LABS: BASOPHILS PERCENT MAN 0 % (0-2); EOSINOPHILS PERCENT MAN 0 % (0-6); LYMPHOCYTES ABSOLUTE MAN 16.18 K/mm3 (0.84-5.20); LYMPHOCYTES PERCENT MAN 64 % (21-46); MONOCYTES ABSOLUTE MAN 0.75 K/mm3 (0.16-1.47); MONOCYTES PERCENT MAN 3 % (4-13); NEUTROPHILS ABSOLUTE MAN 8.34 K/mm3 (1.96-9.15); SEG NEUTROPHILS PERCENT MAN 33 % (41-73); TOTAL CELLS COUNTED 100
[2019-10-25 21:45] LABS: Source, Urine Catheter
[2019-10-25 21:48] LABS: Bilirubin, Urine Neg (Neg); Blood, Urine Neg (Neg); Glucose Qualitative, Urine 3+ (Neg); Ketones, Urine Neg (Neg); Leukocyte Esterase, Urine Neg (Neg); Nitrite, Urine Neg (Neg); Protein, Urine 2+ (Neg); Specific Gravity, Urine 1.025 (1.003-1.022); Urobilinogen, Urine NORM (Normal)
--- NOTE | 2019-10-25 21:54 | NUR ---
ARRIVED TO FLOOR PT TO RM 303 AROUND 2141 BY STRETCHER. RECIEVED REPORT BY ADAIR CARUSO IN ER. PT 1 ASSIST TRANSFER TO BED. VERY FEARFUL & SLOW TO RESPOND TO QUESTIONS. ORIENTED TO CALL LIGHT & WILL MONITOR.
[2019-10-25 22:05] LABS: Appearance, Urine Clear (Clear); Color, Urine Yellow (P-Yellow)
[2019-10-25 22:06] LABS: Bacteria Not Seen /hpf; Hyaline Casts 0-2 /lpf (0-2); Red Blood Cells, Urine Not Seen /hpf (0-2); Squamous Epithelial Cells Few /hpf (Few); White Blood Cells, Urine Rare /hpf (0-5)
--- NOTE | 2019-10-26 05:46 | NUR ---
SHIFT SUMMARY DEVELOPMENTALLY DELAYED. APPEARS FEARFUL. AOX2; UNAWARE DATE, PRESIDENT (STATES IT'S MARY CARMEN), BUILDING. ABLE TO STATE TOWN & NAME/BIRTHDATE. VERY SLOW TO RESPOND TO QUESTIONS. DOESNT ALWAYS ANSWER QUESTIONS OR FOLLOW DIRECTIONS. AT TIMES PT STARES BLANKLY AT STAFF AFTER ASKING QUESTION & WILL NOT RESPOND. REPORTS ALLOVER ABD TENDERNESS W/PALPATION, HOWEVER CANT RATE PAIN LEVEL. NO S/S OF N/V OR DYSPNEA. STATES ITS BEEN OVER 1 WK SINCE SHE'S HAD A BM, MEDICATED W/BOWEL CARE MEDS & NO BM SO FAR, WILL MONITOR. PT TOLERATED 1 JELLO WELL. REPORTS LOSING "MORE THEN 20LBS" & STATES SHE DOESN'T FEEL HUNGRY. WHEN ASKED IF SHE HAS FAMILY IN TOWN TO HELP HER SHE REPORTS HER LANDLORD HELPS, OTHERWISE HER KIDS LIVE IN [place]. RECEIVING CLINIMIX. CALL LIGHT IN REACH & BED ALARM ON FOR SAFETY. WCTM.
[2019-10-26 08:25] LABS: Hematocrit 34.4 % (33.0-51.0); Hemoglobin 10.3 g/dL (11.5-16.0); Mean Corpuscular HGB 27.4 pg (26.0-34.0); Mean Corpuscular HGB Conc 29.9 g/dL (31.5-36.5); Mean Corpuscular Volume 92 fL (80-100); Mean Platelet Volume 12.6 fL (9.1-12.4); Platelet Count 217 K/mm3 (150-400); RDW Standard Deviation 54.2 fL (35.1-46.3); Red Blood Cell Count 3.76 M/mm3 (3.80-5.20); White Blood Cell Count 18.79 K/mm3 (4.00-11.30)
[2019-10-26 08:44] LABS: Alanine Aminotransfer (ALT/SGP 14 U/L (12-78); Albumin, Blood 3.1 g/dL (3.4-5.0); Albumin/Globulin Ratio 1.2 (0.8-1.8); Alk Phos 58 U/L (50-136); Anion Gap 4 mmol/L (6-16); Aspartate Aminotrans (AST/SGOT 8 U/L (12-37); Bilirubin, Total 0.6 mg/dL (0.1-1.0); Blood Urea Nitrogen 28 mg/dL (8-24); Bun/Creatinine Ratio 50.6 (12.0-20.0); CO2, Blood 27 mmol/L (21-32); Calcium, Blood 8.3 mg/dL (8.5-10.1); Chloride, Blood 105 mmol/L (98-108); Creatinine, Blood 0.55 mg/dL (0.40-1.00); Globulin, Blood 2.6 g/dL (2.2-4.0); Glomerular Filtration Rate >60 (60-); Glucose, Blood 108 mg/dL (70-99); Potassium, Blood 4.5 mmol/L (3.5-5.5); Sodium, Blood 136 mmol/L (136-145); Total Protein, Blood 5.7 g/dL (6.4-8.2)
[2019-10-26 09:13] LABS: BASOPHILS PERCENT MAN 0 % (0-2); EOSINOPHILS PERCENT MAN 0 % (0-6); LYMPHOCYTES ABSOLUTE MAN 12.96 K/mm3 (0.84-5.20); LYMPHOCYTES PERCENT MAN 69 % (21-46); MONOCYTES ABSOLUTE MAN 1.12 K/mm3 (0.16-1.47); MONOCYTES PERCENT MAN 6 % (4-13); NEUTROPHILS ABSOLUTE MAN 4.69 K/mm3 (1.96-9.15); SEG NEUTROPHILS PERCENT MAN 25 % (41-73); TOTAL CELLS COUNTED 100
--- NOTE | 2019-10-26 16:16 | NUR ---
Initial palliative care consult: Carli is a 64 year old with a history of UTIs, bipolar, COPD, CLL, developmental delay and colon cancer s/p colectomy in August 2019. She was brought into the hospital by Jamil Pierson, her landlord and friend, because she wasn't feeling well. PC consulted to assist with finding a decision maker and advanced care planning. She reports she hasn't been able to have a bowel movement in several days and her appetite is decreased. She reports she eats cereal and sandwiches at home which she prepares when she is feeling well. She states that she doesn't drive and that Jamil will assist her with shopping and transportation. She c/o some abdomnial discomfort and nausea at times. She did have some coughing after drinking water through a straw. Nursing reports she was able to swallow pills earlier today it took some time but she was able to do it. Encouraged staff to monitor at meals, if coughing with eating/drinking is a pattern a ST eval may be warranted. She reports she used to weigh about 145 pounds. Her current weight is 33.2 kg (73 lbs), she is unsure of how long a time period she lost all that weight. No other complaints expressed at this time. Carli reports that she lives in a house where she rents a room on [address]. Carli states that Osmin and Jamil (landlorgisella) also live at the house. Attempted to contact the only phone number listed ([phone]) but this number has calling restrictions and this advertising copy writer is unable to get through to speak with anyone or to leave a message. Carli reports that she has lived at her current residence for the past 6 years. She reports prior to that she lived with her brother at his house. He and that is when she moved into the home she is currently in. She has no other siblings. She reports both of her parents are . She has two sons in [place] with whom she has no contact. She also has a niece in [place] who she also has no contact with. She reports that she has a case monitor with aging persons and people with disabilities but she is unable to recall the case workers' name. She is unable to tell this advertising copy writer who her PCP is or if she sees an oncologist. Reviewed chart notes from previous visit. Will plan to contact aging and people with disabilities on Monday to locate a case monitor and see if they can help with locating NOK. Carli reports she receive $884/month of SSI. Will also contact [facility] [place] to see if she has a PCP as there was a consult to [facility] for oncology follow up at the time of her discharge in August 2019. May need a speech therapy evaluation. Her weight loss and fraility are concerning given her history of cancer. She may be requiring more care at home then she is currently getting. She denies having any DME and reports she is able to cook and dress herself. She would likely benefit from an alterate living situation where she can receive more care. Hospice services would be a benefit to her as well. Unable to determine if she understands the severity of her illness and her prognosis. PC will continue to follow for assistance with locating NOK, a decision maker and advanced care planning.
--- NOTE | 2019-10-26 18:32 | NUR ---
PT RECEIVING BOWEL CARE FOR CONSTIPATION, RESULTS OF 1 MED BM AND 1 EX LG BM. PALLIATIVE CARE ATTEMPTING TO LOCATE FAMILY AND WILL KEEP US APPRAISED TO THEIR RESULTS. NO ACUTE CHANGES NOTED THIS SHIFT, WILL CONTINUE TO MONITOR AND REPORT TO ONCOMING RN.
[2019-10-27 04:59] LABS: BASOPHILS ABSOLUTE AUTO 0.02 K/mm3 (0.00-0.23); BASOPHILS PERCENT AUTO 0 % (0-2); EOSINOPHILS ABSOLUTE AUTO 0.01 K/mm3 (0.00-0.68); EOSINOPHILS PERCENT AUTO 0 % (0-6); Hematocrit 32.3 % (33.0-51.0); Hemoglobin 9.9 g/dL (11.5-16.0); Mean Corpuscular HGB 27.4 pg (26.0-34.0); Mean Corpuscular HGB Conc 30.7 g/dL (31.5-36.5); Mean Corpuscular Volume 90 fL (80-100); Mean Platelet Volume 12.6 fL (9.1-12.4); NRBC ABSOLUTE 0.04 K/mm3 (0.00-0.02); NRBC Auto 0.2 /100 WBC (0.0-0.2); Platelet Count 200 K/mm3 (150-400); Red Blood Cell Count 3.61 M/mm3 (3.80-5.20); White Blood Cell Count 16.85 K/mm3 (4.00-11.30)
[2019-10-27 05:00] LABS: IMMATURE GRAN ABSOLUTE AUTO 0.02 K/mm3 (0.00-0.10); IMMATURE GRAN PERCENT AUTO 0 % (0-1); LYMPHOCYTES PERCENT AUTO 77 % (21-46); MONOCYTES ABSOLUTE AUTO 0.59 K/mm3 (0.16-1.47); MONOCYTES PERCENT AUTO 4 % (4-13); NEUTROPHILS ABSOLUTE AUTO 3.21 K/mm3 (1.96-9.15); NEUTROPHILS PERCENT AUTO 19 % (41-73)
--- NOTE | 2019-10-27 05:05 | NUR ---
SHIFT SUMMARY CONSTIPATION A/O, VSS, SLOW TO RESPOND WHEN ASKING QUESTIONS, ANSWERS APPROPRIATELY, FOLLOWS DIRECTIONS, NEEDS OCCASIONAL REPEAT OF DIRECTIONS. 1 SMALL BM DURING SHIFT, TAKES ORAL MEDS WELL W/ APPLESAUCE AND SWALLOWING COACHING. PT UP MOST OF THE SHIFT, STATES NOT FEELING WELL BUT REPORTS NO PAIN OR N/V AT THIS TIME. CALL LIGHT IN REACH. WILL REPORT TO ONCOMING DAY RN.
[2019-10-27 05:25] LABS: Alanine Aminotransfer (ALT/SGP 12 U/L (12-78); Albumin, Blood 3.1 g/dL (3.4-5.0); Albumin/Globulin Ratio 1.2 (0.8-1.8); Alk Phos 59 U/L (50-136); Anion Gap 5 mmol/L (6-16); Aspartate Aminotrans (AST/SGOT 12 U/L (12-37); Bilirubin, Total 0.7 mg/dL (0.1-1.0); Blood Urea Nitrogen 22 mg/dL (8-24); Bun/Creatinine Ratio 29.3 (12.0-20.0); CO2, Blood 28 mmol/L (21-32); Calcium, Blood 8.7 mg/dL (8.5-10.1); Chloride, Blood 102 mmol/L (98-108); Creatinine, Blood 0.75 mg/dL (0.40-1.00); Globulin, Blood 2.6 g/dL (2.2-4.0); Glomerular Filtration Rate >60 (60-); Glucose, Blood 107 mg/dL (70-99); Potassium, Blood 4.3 mmol/L (3.5-5.5); Sodium, Blood 135 mmol/L (136-145); Total Protein, Blood 5.7 g/dL (6.4-8.2)
[2019-10-28 04:55] LABS: BASOPHILS ABSOLUTE AUTO 0.04 K/mm3 (0.00-0.23); BASOPHILS PERCENT AUTO 0 % (0-2); EOSINOPHILS ABSOLUTE AUTO 0.04 K/mm3 (0.00-0.68); EOSINOPHILS PERCENT AUTO 0 % (0-6); Hematocrit 32.3 % (33.0-51.0); Hemoglobin 9.7 g/dL (11.5-16.0); Mean Corpuscular HGB 27.6 pg (26.0-34.0); Mean Corpuscular Volume 92 fL (80-100); Mean Platelet Volume 12.7 fL (9.1-12.4); Platelet Count 185 K/mm3 (150-400); RDW Coefficient Variation 16.2 % (11.7-14.2); RDW Standard Deviation 54.5 fL (35.1-46.3); Red Blood Cell Count 3.52 M/mm3 (3.80-5.20)
[2019-10-28 05:04] LABS: IMMATURE GRAN ABSOLUTE AUTO 0.01 K/mm3 (0.00-0.10); IMMATURE GRAN PERCENT AUTO 0 % (0-1); LYMPHOCYTES ABSOLUTE AUTO 11.54 K/mm3 (0.84-5.20); LYMPHOCYTES PERCENT AUTO 78 % (21-46); MONOCYTES PERCENT AUTO 5 % (4-13); NEUTROPHILS ABSOLUTE AUTO 2.47 K/mm3 (1.96-9.15); NEUTROPHILS PERCENT AUTO 17 % (41-73)
[2019-10-28 05:40] LABS: Alanine Aminotransfer (ALT/SGP 11 U/L (12-78); Albumin, Blood 2.9 g/dL (3.4-5.0); Albumin/Globulin Ratio 1.1 (0.8-1.8); Alk Phos 57 U/L (50-136); Anion Gap 3 mmol/L (6-16); Aspartate Aminotrans (AST/SGOT 10 U/L (12-37); Bilirubin, Total 0.5 mg/dL (0.1-1.0); Blood Urea Nitrogen 16 mg/dL (8-24); Bun/Creatinine Ratio 21.9 (12.0-20.0); CO2, Blood 27 mmol/L (21-32); Calcium, Blood 8.3 mg/dL (8.5-10.1); Chloride, Blood 107 mmol/L (98-108); Creatinine, Blood 0.73 mg/dL (0.40-1.00); Globulin, Blood 2.6 g/dL (2.2-4.0); Glomerular Filtration Rate >60 (60-); Glucose, Blood 85 mg/dL (70-99); Magnesium, Blood 2.2 mg/dL (1.6-2.4); Potassium, Blood 4.2 mmol/L (3.5-5.5); Sodium, Blood 137 mmol/L (136-145); Total Protein, Blood 5.5 g/dL (6.4-8.2)
[2019-10-28 07:05] LABS: BAND PERCENT MAN 1 % (0-8); BASOPHILS PERCENT MAN 0 % (0-2); EOSINOPHILS PERCENT MAN 0 % (0-6); LYMPHOCYTES ABSOLUTE MAN 12.43 K/mm3 (0.84-5.20); LYMPHOCYTES PERCENT MAN 84 % (21-46); MONOCYTES ABSOLUTE MAN 0.59 K/mm3 (0.16-1.47); MONOCYTES PERCENT MAN 4 % (4-13); NEUTROPHILS ABSOLUTE MAN 1.77 K/mm3 (1.96-9.15); SEG NEUTROPHILS PERCENT MAN 11 % (41-73); TOTAL CELLS COUNTED 100
--- NOTE | 2019-10-28 15:16 | NUR ---
TAPAN ATTEMPTS MADE TO PHONE NUMBER OF "FRIEND" WITH NO SUCCESS. FIBER OPTIC ASSEMBLY WORKER BEEN ASSISTING WITH DISCHARGE PLANNING. BEEN DISCUSSING DISCHARGE WITH COTA. DISCHARGE CANCELLED AFTER TALKED WITH FIBER OPTIC ASSEMBLY WORKER DISCUSSED PT NOT ABLE TO RECIEVE HOME HEALTH AT THIS TIME.
--- NOTE | 2019-10-28 18:02 | NUR ---
SHIFT SUMMARY PT BEEN EATING AND DRINKING, VOIDING, HAD UNFORMED BM. PT DISCHARGE WAS CANCELLED TODAY. AUTOMATION ENGINEER ASSISTING WITH DISCHARGE PLANNING. PT BEEN ASSISTED WITH ADL'S PRN. PT TOOK NAP TODAY. PT BEEN UP WITH ASSIST. ATE MEALS IN CHAIR. CALL LIGHT IN REACH.
[2019-10-29 04:53] LABS: BASOPHILS ABSOLUTE AUTO 0.04 K/mm3 (0.00-0.23); BASOPHILS PERCENT AUTO 0 % (0-2); EOSINOPHILS ABSOLUTE AUTO 0.07 K/mm3 (0.00-0.68); EOSINOPHILS PERCENT AUTO 1 % (0-6); Hematocrit 31.6 % (33.0-51.0); Hemoglobin 9.5 g/dL (11.5-16.0); Mean Corpuscular HGB 27.5 pg (26.0-34.0); Mean Corpuscular HGB Conc 30.1 g/dL (31.5-36.5); Mean Corpuscular Volume 92 fL (80-100); Mean Platelet Volume 12.4 fL (9.1-12.4); Platelet Count 175 K/mm3 (150-400); RDW Coefficient Variation 15.9 % (11.7-14.2); Red Blood Cell Count 3.45 M/mm3 (3.80-5.20); White Blood Cell Count 13.78 K/mm3 (4.00-11.30)
[2019-10-29 04:59] LABS: IMMATURE GRAN PERCENT AUTO 0 % (0-1); LYMPHOCYTES PERCENT AUTO 75 % (21-46); MONOCYTES PERCENT AUTO 4 % (4-13); NEUTROPHILS PERCENT AUTO 20 % (41-73)
[2019-10-29 05:00] LABS: IMMATURE GRAN ABSOLUTE AUTO 0.01 K/mm3 (0.00-0.10); LYMPHOCYTES ABSOLUTE AUTO 10.34 K/mm3 (0.84-5.20); MONOCYTES ABSOLUTE AUTO 0.58 K/mm3 (0.16-1.47); NEUTROPHILS ABSOLUTE AUTO 2.74 K/mm3 (1.96-9.15)
--- NOTE | 2019-10-29 05:26 | NUR ---
SUMMARY: PT A/O TO SELF AND PLACE. SHE'S ABLE TO SPECIFY NEEDS AND ANSWER MOST Q'S APPROPRIATELY BUT OCC HAS DELAYED RESPONSES OR NONE AT ALL. BED ALARM ARMED FOR FALL RISK AND SBA W/FWW PROVIDED FOR TOILET ASSIST. PT HAD SMALL FORMED BM THIS SHIFT AND NO LONGER APPEARS TO BE HAVING LOOSE STOOLS. PT APPEARS VERY THIN, EMACIATED AND FRAIL BUT HAS DECENT STRENGTH AND REPOSITIONS SELF IN BED. PILLOWS PROVIDED FOR BONY PROMINENCES AND SBD PREVENTION. PT REPORTED MILD ABDO DISCOMFORT AT START OF SHIFT BUT ADMITTED TO RELIEF AFTER HAVING BM. NO ACUTE CHANGES, VSS/AFEBRILE. D/C ON HOLD W/DISCHARGE PLANNING INVOLVED. WCTM AND REPORT TO DAY RN.
[2019-10-29 05:44] LABS: Alanine Aminotransfer (ALT/SGP 12 U/L (12-78); Albumin/Globulin Ratio 1.2 (0.8-1.8); Alk Phos 57 U/L (50-136); Anion Gap 5 mmol/L (6-16); Aspartate Aminotrans (AST/SGOT 10 U/L (12-37); Bilirubin, Total 0.4 mg/dL (0.1-1.0); Blood Urea Nitrogen 16 mg/dL (8-24); Bun/Creatinine Ratio 23.6 (12.0-20.0); CO2, Blood 26 mmol/L (21-32); Calcium, Blood 8.3 mg/dL (8.5-10.1); Chloride, Blood 107 mmol/L (98-108); Creatinine, Blood 0.68 mg/dL (0.40-1.00); Globulin, Blood 2.6 g/dL (2.2-4.0); Glomerular Filtration Rate >60 (60-); Glucose, Blood 95 mg/dL (70-99); Potassium, Blood 4.2 mmol/L (3.5-5.5); Sodium, Blood 138 mmol/L (136-145); Total Protein, Blood 5.6 g/dL (6.4-8.2)
--- NOTE | 2019-10-29 10:13 | NUR ---
Pt resting in bed upon arrival. Pt is A&OX2/3. Pt unable to verbalize appropriate reason for hospital stay. Pt reports pain in her abdomen and unable to verbalize intensity of pain with pain rating scale or with faces on white board. FLACC score of 3/10. Encouraged Pt to discuss concerns she is having. Pt is reporting no other concerns at this time. When engaging in conversation Pt appears to be attemptin to process questions and information. Pt appears to have low level of understanding and insight. Pt does not respond to inquire regarding not following up with oncologist for her cancer diagnosis. Pt just shrugs her shoulders. Spoke with Tahira Woodward and discussed case. Spoke with Dr Payne and discussed case. Placed order for provider consult for Dr Helton to examine due to concerns of Pt's ability to make decisions. Palliative Care will remain available for supportive visits.
--- NOTE | 2019-10-29 13:31 | NUR ---
Spoke with Caremanager Woodward and discussed case. Crissy is currently working on future [facility] safe discharge plan. She will attempt to contact [facility] and see if she is currently on with their services. Spoke with [facility] and discussed case. Francheska performed mini mental and determined Pt has moderate to severe impairment with some concerns for dementia. Attempted to call Pt's friend listed for contacts. Number has call restrictions and unable to contact friend. Pt will most likely need a decision maker. Order for Dr Helton to consult on case.
--- NOTE | 2019-10-29 16:52 | NUR ---
SHIFT SUMMARY PT UP TO BATHROOM WITH 1 PERSON ASSIST. HAS SAID SHE DOESN'T FEEL WELL WHEN ASKED BUT UNABLE TO SPECIFY HOW SHE DOESN'T FEEL WELL. CONSULT SATYA FOR DR. DOYLE BUT SHE HASN'T BEEN SEEN BY HIM YET. WITH CONTINUE TO MONITER AND REPORT CONDITION TO ONCOMING SHIFT.
--- NOTE | 2019-10-29 18:01 | NUR ---
nitial spiritual care note: Mrs. Hodges appears quite frail and very weak. She was non-verbal and was slow to respond with nods. I sat beside her for awhile, holding her hand and assuring her safety, love, and attention. I found her something she liked on TV and rubbed lotion on her hands. She allowed me to pray for her. She denied pain. I will remain available.
--- NOTE | 2019-10-30 04:35 | NUR ---
SHIFT SUMMARY PT IS MINIMALLY VERBAL. SLOW TO RESPOND. WILL NOT ANSWER QUESTIONS AT TIMES. HOWEVER, PT HAD UNEVENTFUL NIGHT. SLEPT THROUGH MOST OF THE NIGHT. DID NOT GET UP TO VOID MOST OF THE NIGHT AND THEN LATE IN THE SHIFT PT GOT UP AND VOIDED 800 MLS OF DARK URINE. NO COMPLAINTS OF ANY PAIN. VITAL SIGNS STABLE. WILL CONTINUE TO MONITOR AND REPORT TO DAY RN.
--- NOTE | 2019-10-30 18:27 | NUR ---
Spiritual care note: Carli was confused, but much more conversant today. She told me she moved to [place] to care for her aging parents until their . She has no family left "I'm the last one." She appears to have very little social support other than her landlord who "helps sometimes." She told me she was hungry so I brought her an Ensure which she drank quickly and asked for another. We have an easy rapport and she appeared to enjoy companionship and encouragement. She denied fears/conerns and is non-religous. She is unsure why she is hospitalized or what to expect next. This does not appear to cause her concern, however. I will remain available.
--- NOTE | 2019-10-31 18:03 | NUR ---
Spiritual care note: Carli was more quiet today, but she seemed to enjoy companionship and conversation. She admitted to feeling tired. She is slow to respond. She admits she is "a litle" worried about what is going to happen to her next. She also admitted she has been quite lonely without family/friends. I provided encouragement and assurance of safety and care. She drifted off to sleep and visit ended. [employer] will remain available.
--- NOTE | 2019-10-31 19:54 | NUR ---
SHIFT SUMMARY PT UP TO BATHROOM INDEPENDENTLY USING A FWW. TYLENOL GIVEN THIS MORNING AND HASN'T APPEARED PAINFUL SINCE. HAS HAD NO CHANGED TODAY.
--- NOTE | 2019-11-01 04:20 | NUR ---
11/01/19 0420 BED ALARM SOUNDING. PT WANTING TO GO TO BATHROOM AND POSTDOCTORAL RESEARCH FELLOW ASSISTED HER. VITALS STABLE. ENCOURAGED ORAL INTAKE BUT WOULD ONLY TAKE SIPS. MEDICATED ONCE FOR GENERAL ABDOMINAL DISCOMFORT.
[2019-11-01 04:41] LABS: Hematocrit 33.6 % (33.0-51.0); Mean Corpuscular HGB Conc 29.8 g/dL (31.5-36.5); Mean Corpuscular Volume 94 fL (80-100); Mean Platelet Volume 12.6 fL (9.1-12.4); Platelet Count 190 K/mm3 (150-400); RDW Coefficient Variation 16.3 % (11.7-14.2); RDW Standard Deviation 56.1 fL (35.1-46.3); Red Blood Cell Count 3.57 M/mm3 (3.80-5.20); White Blood Cell Count 12.32 K/mm3 (4.00-11.30)
[2019-11-01 05:07] LABS: Anion Gap 1 mmol/L (6-16); Blood Urea Nitrogen 14 mg/dL (8-24); Bun/Creatinine Ratio 19.6 (12.0-20.0); CO2, Blood 30 mmol/L (21-32); Calcium, Blood 8.8 mg/dL (8.5-10.1); Chloride, Blood 109 mmol/L (98-108); Creatinine, Blood 0.72 mg/dL (0.40-1.00); Glomerular Filtration Rate >60 (60-); Glucose, Blood 86 mg/dL (70-99); Sodium, Blood 140 mmol/L (136-145)
--- NOTE | 2019-11-01 17:29 | NUR ---
SUMMARY PT SITTING UP IN BED WATCHING TV, HAS BEEN PLEASANT AND COOPERATIVE WITH CARE T/O THE DAY, PT UP TO THE SHOWER WITH MIN ASSIST, PT INDEP TO THE BATHROOM, NO COMPLAINTS, VSS, WILL CONT TO MONITOR
--- NOTE | 2019-11-02 04:25 | NUR ---
SHIFT SUMMARY ASSUMED CARE OF PT AT 1900. PT IS ALERT BUT ONLY ORIENTED TO SELF. HEART SOUNDS REGULAR, LUNG SOUNDS DIMINISHED, DENIES SOB/CP. PT IS A LITTLE SLOW TO RESPOND AND HAS A FLAT AFFECT, BUT WILL ANSWER QUESTIONS APPROPIATLY. PT WAS CONTINENT T/O THE NIGHT. PT C/O NEASEA AT THE BEGINNING OF THE SHIFT, MEDICATED PER EMAR AND DIDNT COMPLAIN SINCE. PT SKIN IS VERY FRAGILE AND DRY. NO ACUTE EVENTS DURING THE NIGHT. PT SLEPT T/O THE NIGHT. CALL LIGHT IN REACH, BED IN LOWEST POSITION, WILL CONTINUE TO MONITOR UNTIL DAYSHIFT NURSE ARRIVES.
--- NOTE | 2019-11-02 18:33 | NUR ---
SHIFT SUMMARY- PT IS ALERT, AND PLESANT, SHE HAS SOME INTERMITENT CONFUSION. SHE SLEPT FOR SEVERAL HOURS THIS SHIFT. SHE IS EATING AND DRINKING WELL. SHE HAD TWO BM THIS SHIFT. SHE C/O FEELING LIKE SHE NEEDS TO HAVE MORE BM. SPOKE WITH ABOUT THIS
--- NOTE | 2019-11-03 04:52 | NUR ---
SHIFT SUMMARY ASSUMED CARE OF PT AT 1900. PT IS A/OX2, DENIES N/T IN EXTREMITIES. HEART SOUNDS REGULAR, LUNG SOUNDS DIMINISHED, DENIES CP/SOB. PT WAS INDEPENDENT TO BATHROOM. CONTINENT T/O THE NIGHT. PT C/O REDNESS IN [place] AREA, UPON ASSESSMENT, IT WAS HER COCCYX THAT HURT FROM SITTING ON IT. MEPILEX APPLIED FOR PREVENTION. NO ACUTE EVENTS DURING THE NIGHT. PT SLEPT T/O THE NIGHT. CALL LIGHT IN REACH, BED IN LOWEST POSTION, WILL CONTINUE TO MONITOR UNTIL DAYSHIFT NURSE ARRIVES.
--- NOTE | 2019-11-03 16:53 | NUR ---
SHIFT SUMMARY- PT IS ALERT, PLESANT AND COOPERATIVE. SHE HAS SOME CONFUSION AND C/O DIFFICULTY HAVING BM. SHE HAS HAD ONE LARGE BM THIS SHIFT AND SEVERAL YESTERDAY. SHE IS EATING AND DRINKING WELL. SHE AMBULATED IN THE [place] TODAY AND TOLERATED WELL.
--- NOTE | 2019-11-04 04:04 | NUR ---
SHIFT SUMMARY ASSUMED CARE OF PT AT 1900. PT IS A/OX3, DENIES N/T IN EXTREMITES. HEART SOUNDS REGULAR, LUNG SOUNDS DIMINISHED. PT STATES ABD OS SORE, MEDICATED WITH TYLENOL. PT IS SLOW TO RESPONDS TO QUESTIONS. PT WAS INDEPENDENT TO BATHROOM. NO ACUTE EVENTS DURING THE NIGJT. PT SLEPT DURING THE NIGHT, WILL CONTINUE TO MONITOR UNTIL DAYSHIFT NURSE ARRIVES.
--- NOTE | 2019-11-04 17:31 | NUR ---
PATIENT IS ALERT AND ORIENTED WITH SOME CONFUSION AND DEVELOPMENTAL DELAY. SHE IS A 1PA TO THE BATHROOM, CALLS APPROPRIATELY. NO COMPLAINTS OF PAIN TODAY. TWO SMALL BM'S. SHE IS IN THE RECLINER AT THIS TIME. SHE WALKED IN THE HALLWAY WITH THE RN ELINOR. WILL CONTINUE TO MONITOR.
--- NOTE | 2019-11-05 07:34 | NUR ---
11/05/19 0600 PT SLEPT WELL LAST NIGHT. EATING AND DRINKING GOOD. MEDICATED ONCE FOR GENERAL ABDOMINAL DISCOMFORT. HAD ONE BM LAST NIGHT WITH VOIDING. VITALS STABLE. UNEVENTFUL NIGHT.
--- NOTE | 2019-11-05 17:42 | NUR ---
PT IS AOX2 AND COOPERATIVE OF CARE. PT HAS BEEN DOING WELL TODAY AND DENIES ANY PAIN WILL CONTINUE TO MONITOR. PT UP IN CHAIR FOR ALL MEALS AND SEEMS CONTENT TO WATCH TV IN HER ROOM. CALL LIGHT WITHIN REACH. NO DISTRESS NOTED.
--- NOTE | 2019-11-05 18:23 | NUR ---
Spiritual care note: Carli smiles easily and was quite pleasant. She does not appear bothered by her lengthy hospitalization. She says little and denied pain/concern. She appeared to enjoy companioship/encouragement. I will remain available.
--- NOTE | 2019-11-06 05:49 | NUR ---
11/06/19 0515 SLEPT WELL LAST NIGHT BUT DID C/O CONSTIPATION. PRUNE JUICE GIVEN X 2 BUT NO BM THIS SHIFT YET. VITALS STABLE. MEDICATED ONCE FOR GENERAL ABDOMINAL DISCOMFORT.
--- NOTE | 2019-11-06 17:05 | NUR ---
PT AOX2 AND COOPERATIVE OF CARE. PT VERY PLEASANT AND COOPERATIVE. DENIED ANY PAIN TODAY. PT 1 ASSIT TO RESTROOM WITH WALKER. PT UP FOR MEALS IN CHAIR. NO DISTRESS NOTED AT THIS TIME WILL CONTINUE TO MONITOR.
--- NOTE | 2019-11-07 05:32 | NUR ---
SHIFT SUMMARY- PT. A&O, PLEASANT. APPEARED TO HAVE SLEPT WELL T/O THE NIGHT. NO APPARENT DISTRESS NOTED. NO COMPLAINTS THIS SHIFT. PT. A 1 ASSIST W/WALKER TO BATHROOM. NO BM THIS SHIFT. PT. AWAITING FOR PLACEMENT. CALL LIGHT WITHIN REACH, SIDE RAILS UPX2, AND BED ALARM ON FOR SAFETY. WILL CONT TO MONITOR.
--- NOTE | 2019-11-07 08:30 | NUR ---
PT PLEASANTCOOP A/O. CONCRETE AND FLAT EFFECT. PRESENTS QUITE THIN. H/R REG, NO MURMER NOTED. NO TELE.LUNGS CLEAR, BUT DIM T/O. ON R.A . RESP EASYK UNLABORED. BT X4 LASAT BM YEST. ABD SMALL ROUND, FIRM TIGHT. PT STATES NORMAL FOR HER. VOIDS INCONT. IN ATTENDS. SBA WITH FWW TO BATHROOM. BED IN LOW POSITION, CALL LITE IN [facility], BED ALARMON FOR SAFETY
--- NOTE | 2019-11-07 18:22 | NUR ---
PT PLEASANT TODAY. HAS BEEN IN CHAIR MOST OF DAY. DID HAVE XLARGE BM TODAY. NO NEW CONCERNS AT THIS TIME. PENDING D/C TO SNF. BED IN LOW POSITOIN, CALL LITE IN [facility], CALLS APPROP, ALARM ON FOR SAFETY
--- NOTE | 2019-11-08 05:40 | NUR ---
SHIFT SUMMARY- NO ACUTE EVENTS OVERNIGHT. PT. ASLEEP DURING MOST OF THE NIGHT, NO APPARENT DISTRESS NOTED. UP TO VOID X1 WITH ASSISTANCE. PT. HAD NO COMPLAINTS THIS SHIFT. AWAITING ON GUARDIANSHIP AND PLACEMENT. CALL LIGHT WITHIN REACH, SIDE RAILS UPX2, AND BED ALARM. WILL CONT TO MONITOR.
--- NOTE | 2019-11-08 09:00 | NUR ---
PT PLEASANT COOP A/O TODAY. CONCERNS OF IF SSI WILL PENALIZE HER FOR BEING IN HOSP. ASSURED HER WE ARE NOT CONCERNED ABOUT THIS . H/R REG, NO MURMER NOTED. NO TELE. LUNGS CLEAR BUT QUITE DIM T/O. ON R.A. RESP EASY, UNLABORED. BT X4 LAST BM YEST. XLARGE. ABD SMALL ROUND, BUT ONLY MOD FIRM TODAY. VOIDS SBA WITH FWW TO BATHROOM. BED IN LOW POSITION, CALL LITE IN REACH, BED ALARMON FOR SAFETY
--- NOTE | 2019-11-08 16:16 | NUR ---
PT PLEASANT TODAY, NO C/O PAIN. DID HAVE BM TODAY ALSO. PT BEEN IN CHAIR MUCH OF DAY. DENIES PAIN. NO NEW CONCERNS TODAY. BED IN LOW POSITION, CALL LITE IN REACH, CALLS APPROP. BED ALARM ON FOR SAFETY
--- NOTE | 2019-11-08 19:10 | NUR ---
ASSUMED CARE RECEIVED REPORT FROM PRESTON GEORGE. ASSUMED CARE OF PT. NO S/S ACUTE DISTRESS NOTED. RESPS EVEN AND UNLABORED. DENIES NEEDS AT THIS TIME. CALL LIGHT, POSSESSIONS IN REACH. WILL CONTINUE TO MONITOR.
--- NOTE | 2019-11-09 04:01 | NUR ---
SHIFT SUMMARY PT HAS HAD NO ACUTE CHANGES IN CONDITION T/O NIGHT, WAS MONITORED EVERY 1-2 HOURS WITH NEEDS MET. VS AND BP'S STABLE. UP TO BATHROOM WITH FWW AND SBA. NO BMS THIS SHIFT, PT ABD REMAINS SOFT, WITH MILD DISTENTION, BS ACTIVE. NO N/V NOTED. PT ASLEEP AT THIS TIME, DENIES NEEDS. CALL LIGHT, POSSESSIONS IN REACH, BED IN LOWEST POSITION. WILL CONTINUE TO MONITOR AND PROVIDE CARE NEEDED UNTIL DAY RN ASSUMES CARE.
[2019-11-09 16:10] LABS: Anion Gap 4 mmol/L (6-16); Blood Urea Nitrogen 33 mg/dL (8-24); Bun/Creatinine Ratio 43.2 (12.0-20.0); CO2, Blood 32 mmol/L (21-32); Calcium, Blood 8.3 mg/dL (8.5-10.1); Chloride, Blood 103 mmol/L (98-108); Creatinine, Blood 0.76 mg/dL (0.40-1.00); Glomerular Filtration Rate >60 (60-); Glucose, Blood 99 mg/dL (70-99); Potassium, Blood 4.5 mmol/L (3.5-5.5); Sodium, Blood 139 mmol/L (136-145)
--- NOTE | 2019-11-09 17:42 | NUR ---
SHIFT SUMMARY PT IS A&OX3. PT HAS BEEN IN ROOM RESTING AND WATCHING TV ALL SHIFT. PT DENIES N/V/P. PT IS PLESTANT AND WILL ASK FOR ITEMS WHEN NEEDED. PT ABDOMEN IS STILL DISTENDED WITH NORMAL BOWEL TONES. PT HAS BEEN EATING ALL MEALS AND REQUESTED EXTRA PORTION DURING BREAKFAST. PT HAS CALL LIGHT WITHIN REACH AND CURENTLY EATING DINNER.
--- NOTE | 2019-11-09 19:10 | NUR ---
ASSUMED CARE RECEIVED AN UPDATED REPORT FROM PRESTON BARRAZA. ASSUMED CARE OF PT. PT WATCHING TV AT THIS TIME, RESTING COMFORTABLY. NO S/S ACUTE DISTRESS NOTED. DENIES NEEDS. CALL LIGHT, POSSESSIONS IN REACH. WILL CONTINUE TO MONITOR.
--- NOTE | 2019-11-10 04:19 | NUR ---
SHIFT SUMMARY PT RESTING COMFORTABLY AT THIS TIME. NO S/S ACUTE DISTRESS NOTED. HAS HAD NO ACUTE CHANGES IN CONDITION OVERNIGHT, VSS. WAS MONITORED EVERY 1-2 HOURS WITH NEEDS MET. DENIES NEEDS AT THIS TIME. CALL LIGHT, POSSESSIONS IN REACH. WILL CONTINUE TO MONITOR AND PROVIDE CARE NEEDED UNTIL DAY RN ASSUMES CARE.
--- NOTE | 2019-11-10 17:34 | NUR ---
SHIFT SUMMARY. PT DENIES SOB, N/V THIS SHIFT. PT REPORTED ABD AND BACK PAIN THIS AM THAT WAS MANAGED WELL WITH APAP. NO NEW CHANGES OR CONCERNS THIS SHIFT.
--- NOTE | 2019-11-10 19:15 | NUR ---
ASSUMED CARE RECEIVED AN UPDATED REPORT FROM PRESTON CANTRELL. ASSUMED CARE OF PT. RESTING COMFORTABLY AT THIS TIME, NO S/S ACUTE DISTRESS NOTED. DENIES NEEDS. CALL LIGHT, POSSESSIONS IN REACH, WILL CONTINUE TO MONITOR.
--- NOTE | 2019-11-11 05:19 | NUR ---
SHIFT SUMMARY PT HAS HAD AN UNEVENTFUL NIGHT, NO ACUTE CHANGES IN CONDITION NOTED. WAS MONITORED EVERY 1-2 HOURS WITH NEEDS MET. VSS. DENIES NEEDS AT THIS TIME. CALL LIGHT, POSSESSIONS IN REACH. WILL CONTINUE TO MONITOR AND PROVIDE CARE NEEDED UNTIL DAY RN ASSUMES CARE.
--- NOTE | 2019-11-11 18:06 | NUR ---
SHIFT SUMMARY. PT DENIES, SOB, N/V. PT REPORTED PAIN TO BACK AND ABD THIS AM, PAIN MANGED WELL WITH PO APAP. GOOD PO INTAKE. NO NEW CHANGES OR CONCERNS.
--- NOTE | 2019-11-12 04:52 | NUR ---
SUMMARY: A/OX3 BUT CONFUSED TO DATE. SHE CALLS AT TIMES BUT OFTEN TAKES SELF TO BATHROOM W/FWW. SHE IS AWARE WHEN ASSIST IS REQUIRED. PT IS FRAIL W/MEPILEX TO BUTTOCKS FOR SBD PREVENTION. PT DENIED PAIN AND ALL OTHER COMPLAINTS. ABDO SOFT/NONTENDER AND CONSTIPATION RESOLVED. VSS/AFEBRILE, NO ACUTE CHANGES. GUARDIANSHIPT AND SNF PENDING.
--- NOTE | 2019-11-12 17:51 | NUR ---
SHIFT SUMMARY PATIENT DENIES PAIN, NAUSEA, AND SHORTNESS OF BREATH. PATIENT UP SBA IN ROOM. PATIENT MET WITH CARE MANAGEMENT TODAY. PENDING GUARDIANSHIP AND PLACEMENT. CALL LIGHT IN REACH.
--- NOTE | 2019-11-13 04:28 | NUR ---
SHIFT SUMMARY PT WAS ANXIOUS AT THE START OF THE SHIFT, CLIMBING OUT OF BED AND PULLED HIS IV DURING REPORT. PT A/O TO SELF AND PLACE BUT UNABLE TO ANSWER ANY OF MY OTHER QUESTIONS PERTAINING TO ORIENTATION. PT SET OFF CHAIR ALARM AND BED ALARMS SEVERAL TIMES EARLY INTO THE SHIFT. AFTER 2099 PT BEGAN TO RELAX, AND HAS BEEN RESTING SINCE THAT TIME. RECLINER SET UP IN PAITENT ROOM AND HE WAS ABLE TO RELAX AND GET SOME SLEEP. NO ACUTE CHANGES IN PT ASSESSMENT OVERNIGHT. YE IN PLACE PATENT AND DRAINING. PT POST CATHETER INSERTION YESTERDAY URINE HAS A CRANBERRY TINGE BUT APPEARS TO BE CLEARING UP. FAIR AMOUNT OF OUTPUT. BED IN LOWEST POSITION, CALL LIGHT WITHIN REACH.
--- NOTE | 2019-11-13 04:54 | NUR ---
SHIFT SUMMARY NO ACUTE CHANGES TO REPORT THIS SHIFT. PT HAS RESTED T/O THE NIGHT AND HAS DENIED NEEDS WHEN ASKED. PT HAS BEEN PLESANT AND COOPERATIVE WITH CARE. A/OX4, SLOW TO RESPOND. HER ASSESSMENT IS UNCHANGED. STILL AWAITING PLACEMENT AT THIS TIME. BED IN LOWEST POSITION, CALL LIGHT WITHIN REACH.
--- NOTE | 2019-11-13 17:27 | NUR ---
SHIFT SUMMARY PATIENT DENIES PAIN, NAUSEA, AND SHORTNESS OF BREATH. PATIENT PLEASANT AND COOPERATIVE WIHT CARE. UP SBA IN ROOM. EATING AND DRINKING WELL. PENDING PLACEMENT AND GUARDIANSHIP. CALL LIGHT IN REACH.
--- NOTE | 2019-11-14 06:13 | NUR ---
SHIFT SUMMARY A/O, ABLE TO MAKE NEEDS KNOWN. COOPERATIVE WITH CARE. NO C/O PAIN/DISCOMFORT OVERNIGHT. APPEARED TO REST MUCH OF THE NIGHT. NO ACUTE CHANGES NOTED. VSS/AFEBRILE. BED REMAINS IN LOWEST POSITION. CALL LIGHT AND BELONGINGS WITHIN REACH. WCTM. REPORT TO ONCOMING RN.
--- NOTE | 2019-11-14 18:45 | NUR ---
SHIFT SUMMARY- PT ALERT AND ORIENTED, SBA TO THE BATHROOM FOR SAFETY. PT HAS HAD NO ACUTE CHANGE T/O THE SHIFT AND IS AWAITING PLACEMENT. PT ATE WELL FOR ALL 3 MEALS TODAY. SHE IS PLEASENT WITH A Hx OF A MENTAL DELAY.
--- NOTE | 2019-11-15 04:18 | NUR ---
SHIFT SUMMARY A/O, ABLE TO MAKE NEEDS KNOWN. COOPERATIVE WITH CARE. ANSWERS QUESTIONS APPROPRIATELY. NO ACUTE CHANGES NOTED THIS SHIFT. C/O PAIN/DISCOMFORT TO BACK; STATED DID NOT WANT INTERVENTION AT THAT TIME. APPEARED TO REST MUCH OF THE SHIFT. VSS/AFEBRILE. BED IN LOWEST POSITION; ALARM ON. CALL LIGHT AND BELONGINGS WITHIN REACH. WCTM. REPORT TO ONCOMING RN.
--- NOTE | 2019-11-15 07:00 | NUR ---
ASSUMED CARE OF PT- BEDSIDE REPORT COMPLETED WITH NIGHT RN KIARRA. PER REPORT PT HAS NO CHANGE, SLEPT T/O THE NIGHT AND IS STILL AWAITING PLACEMENT.
--- NOTE | 2019-11-15 18:00 | NUR ---
SHIFT SUMMARY- PT HAS HAD NO ACUTE CHANGE T/O THE DAY, SBA FOR SAFETY, SHE CALLS APPROPRIATELY. NO C/O PAIN. PT NAPPED FOR QUITE A WHILE TODAY BUT SHE IS VERY PLEASENT AND COOPERATIVE WITH CARE. PT STILL AWAITING PLACEMENT AT THIS TIME. WILL PASS ON IN REPORT TO NIGHT RN.
--- NOTE | 2019-11-16 04:12 | NUR ---
SHIFT SUMMARY ASSUMED CARE OF PT AT 1900. PT IS A/OX2, DENES N/T IN EXTREMITES. LUNG SOUNDS DIMINISHED, HEART SOUNDS REGULAR. PT HAS NO NEW COMPLAINTS. PT SLEPT ALL NIGHT. TOOK PILLS IN APPLESAUCE BY HERSELF. CALL LIGHT IN REACH, BED IN LOWEST POSTION, WILL CONTINUE TO MONITOR UNTIL DAYSHIFT NURSE ARRIVES.
[2019-11-16 04:35] LABS: BASOPHILS ABSOLUTE AUTO 0.03 K/mm3 (0.00-0.23); BASOPHILS PERCENT AUTO 0 % (0-2); EOSINOPHILS ABSOLUTE AUTO 0.11 K/mm3 (0.00-0.68); EOSINOPHILS PERCENT AUTO 2 % (0-6); Hematocrit 30.7 % (33.0-51.0); Hemoglobin 9.1 g/dL (11.5-16.0); IMMATURE GRAN ABSOLUTE AUTO 0.02 K/mm3 (0.00-0.10); IMMATURE GRAN PERCENT AUTO 0 % (0-1); LYMPHOCYTES ABSOLUTE AUTO 4.09 K/mm3 (0.84-5.20); LYMPHOCYTES PERCENT AUTO 61 % (21-46); MONOCYTES ABSOLUTE AUTO 0.51 K/mm3 (0.16-1.47); MONOCYTES PERCENT AUTO 8 % (4-13); Mean Corpuscular HGB 28.9 pg (26.0-34.0); Mean Corpuscular HGB Conc 29.6 g/dL (31.5-36.5); Mean Corpuscular Volume 98 fL (80-100); NEUTROPHILS ABSOLUTE AUTO 1.91 K/mm3 (1.96-9.15); NEUTROPHILS PERCENT AUTO 29 % (41-73); Platelet Count 224 K/mm3 (150-400); RDW Coefficient Variation 18.1 % (11.7-14.2); RDW Standard Deviation 65.4 fL (35.1-46.3); Red Blood Cell Count 3.15 M/mm3 (3.80-5.20); White Blood Cell Count 6.67 K/mm3 (4.00-11.30)
[2019-11-16 04:51] LABS: Albumin, Blood 2.7 g/dL (3.4-5.0); Anion Gap 3 mmol/L (6-16); Blood Urea Nitrogen 31 mg/dL (8-24); Bun/Creatinine Ratio 46.3 (12.0-20.0); CO2, Blood 28 mmol/L (21-32); Calcium, Blood 8.4 mg/dL (8.5-10.1); Chloride, Blood 109 mmol/L (98-108); Creatinine, Blood 0.67 mg/dL (0.40-1.00); Glomerular Filtration Rate >60 (60-); Glucose, Blood 93 mg/dL (70-99); Magnesium, Blood 2.2 mg/dL (1.6-2.4); Phosphorus, Blood 4.6 mg/dL (2.5-4.9); Potassium, Blood 4.9 mmol/L (3.5-5.5); Sodium, Blood 140 mmol/L (136-145)
--- NOTE | 2019-11-16 17:36 | NUR ---
NOACUTE CHANGES THIS SHIFT. PATIENT AWAITING GUARDIANSHIP AND PLACEMENT. TOLERATING MS DIET. UP WITH FWW AND SBA. ABLE TO MAKE NEEDS KNOWN. VIT B12 CHANGED TO PO.
--- NOTE | 2019-11-17 04:00 | NUR ---
SHIFT SUMMARY PT PLEASANT AND COOPERATIVE. APPEARS FRAIL AND DECONDITIONED. SOMEWHAT SLOW TO RESPOND AT TIMES. PT DID REPORT LEG SORENESS FROM B12 INJECTION BUT OTHERWISE DENIED ANY PAIN. CALLED APPROPRIATELY. SLEPT WELL THROUGH MOST OF THE NIGHT. PT HAD UNEVENTFUL NIGHT. VITAL SIGNS STABLE. WILL CONTINUE TO MONITOR AND REPORT TO DAY RN.
--- NOTE | 2019-11-17 16:58 | NUR ---
NO ACUTE CHANGES NOTED. NO COMPLAINS OF PAIN, N&V. PT CALLS APPROPRIATELY, USES FWW WITH MINIMAL ASSISTANCE. PT TOLERATED [facility] DIET, AND ATE WELL TODAY. PT AWAITS FOR PLACEMENT. SBA FOR SAFETY, AND WILL CONTINUE TO MONITOR.
--- NOTE | 2019-11-18 04:29 | NUR ---
SHIFT SUMMARY PT PLEASANT AND COOPERATIVE. APPEARS TO HAVE SOME SLIGHT DEVELOPMENTAL DELAY. PT FRAIL AND DECONDITIONED. PT CONTINENT. GETS UP TO RESTROOM WITH SBA AND FWW. HAS CALLED APPROPRIATELY. NO COMPLAINTS OF PAIN OR DISCOMFORT. SLEPT WELL THROUGHOUT THE NIGHT. VITAL SIGNS STABLE. AWAITING GAURDIANSHIP AND PLACEMENT. NO ACUTE CHANGES THIS SHIFT. WILL CONTINUE TO MONITOR AND REPORT TO DAY RN.
--- NOTE | 2019-11-18 16:48 | NUR ---
ALERT. DEVELOPMENTALLY DELAYED. DENIES ANY N/V. STANDBY ASSIST, BUT FORGETS TO CALL AND USES 4WW. HAD B.M TODAY. UNLABORED RESPIRATIONS. AWAITING SAFE D'C. WCTM
--- NOTE | 2019-11-19 04:38 | NUR ---
DEVELOPMENT TECHNICAL LEAD SUMMARY. PT HAD A UNEVENTFUL NIGHT SLEEPING MOST OF THE SHIFT. PT REQUESTED TYLENOL W PM MEDS FOR BACK PAIN WHICH SHE TOOK AND REPORED COMPLETE RELIEF OF PAIN. PT REPORTED NO NEW SIGNS OR SYMPTOMS DURING THE SHIFT. PT HAD A AM SYSTOLIC BLOOD PRESSURE OF 85 BUT WAS RECHECKED BY NURSE AND WAS 101. PT HAS HAD LOWER SBP IN THE AM. PT'S ABDOMEN IS STILL SLIGHTLY DISTENDED BUT REPORTS NO PAIN OR TENDERNESS IN ABDOMEN. PT REPORTED NO NUASEA AND WAS ASLEEP DURING NURSE ROUNDING THROUGH OUT THE NIGHT. PT IS CURRENTLY RESTING COMFORTABLY W CALL LIGHT IN REACH.
--- NOTE | 2019-11-19 16:52 | NUR ---
PATIENT REQUEST NICOTINE PATCH. OK TO ORDER 7MG PER .
--- NOTE | 2019-11-19 17:34 | NUR ---
ALERT. ORIENTED. CAME IN WITH CONSTIPATION AND HAS HAD B.M ALMOST DAILY. UNLABORED RESPIRATIONS. SHOWERED AND MORNING ADL'S ON OWN WITH RN STANDBY. ABD DISTENDED. DENIES N/V OR ABD PAIN. CACHETIC LOOKING. SKIN C/D/I. AWAITING GUARDIANSHIP. WCTM.
--- NOTE | 2019-11-20 03:11 | NUR ---
SHIFT SUMMARY PATIENT HAD NO ACUTE CHANGES OBSERVED. AXOX 3 WITH HX DEVELOPMENTALLY DELAYED. SBA TO BATHROOM. NO IV ACCESS. VSS/AFEBRILE. DENIES PAIN, SOB, AND N/V. TAKES MEDICATION CRUSHED IN APPLE SAUCE. CACHETIC APPEARANCE. ABLE TO SLEEP T/O SHIFT. CALL LIGHT IN REACH. BED IN LOWEST POSITION. WILL CONTINUE TO MONITOR UNTIL DAY SHIFT NURSE ASSUMES CARE.
--- NOTE | 2019-11-20 15:36 | NUR ---
ALERT. ORIENTED. PLEASANT. COOPERATIVE. AMBULATED IN HALLWAY DOWN TO ELEVATOR WITH RN. STEADY GAIT USING WALKER AND GATE BELT ON. RESPIRATIONS EVEN AND UNLABORED. AWAITING GUARDIANSHIP. WCTM
--- NOTE | 2019-11-21 03:59 | NUR ---
SHIFT SUMMARY: VSS. AFEB. AAOX3. ABLE TO COMMUNICATE NEEDS. ABD FIRM, ROUND MODERATELY DISTENDED, NON-TENDER. PT STATES ABD APPEARS BASELINE. REPORTS NORMAL BM ON 11/19 DURING THE DAY. STATES SHE IS PASSING FLATUS. NO N/V. NO ACUTE CHANGES OVERNIGHT. WILL CONT TO MONITOR.
--- NOTE | 2019-11-21 11:12 | NUR ---
Therapeutic visit with Carli this morning. She is in her room coloring with her colored markers. She is in good spirits today and is hopeful that she will have a place to go to soon. She denies any symptoms. She reports her appetite is good (she gives this inspector automatic typewriter a thumbs up when asked about her appetite.) She requested black coffee which was provided to her. She has no concerns or requests at this time. PC will continue to provide therapeutic visits and assist with symptom management as needed.
--- NOTE | 2019-11-21 17:04 | NUR ---
Shift Summary A/Ox2 to self, place, and year. Unable to tell me day/month without looking at white board. Able to make needs known. Very pleasant and happy in room, ecstatic when ROSA Norman brought in coloring markers and printed papers for activity. Independent in room to bathroom. Patient had large brown soft bm this shift. Abdomen remains distended, firm, with audible bowel tones and passing flatus, pt states firmness and distention is normal. No c/o pain, nausea, diarrhea, sob. No acute changes in condition. VSS, afebrile.
--- NOTE | 2019-11-22 04:31 | NUR ---
SHIFT SUMMARY: VSS. AFEB. AAOX3. ABLE TO COMMUNCIATE NEEDS. ABD MILDLY DISTENDED, ROUND, SOFTER TONIGHT. LIGHT ABD TENDERNISS W/PALPATION, PT STATES THIS IS BASELINE. DENIES N/V. REPORTS + FLATUS AND NORMAL BM ON 11/20. NO ACUTE CHANGES OVERNIGHT. APPEARS TO HAVE SLEPT WELL. WILL CONT TO MONITOR.
--- NOTE | 2019-11-22 09:40 | NUR ---
PT TOOK SHOWER, DIDNT USE SOAP, REFUSED TO WASH HAIR, LINEN CHANGE DONE,UP IN CHAIR, ORAL CARE DONE, CALL LIGHT IN REACH.
--- NOTE | 2019-11-22 16:50 | NUR ---
Shift Summary No acute changes this shift. REFRIGERATION SYSTEM INSTALLER assisted patient with going downstairs for some candy bars via w/c. Patient had shower, refused shampoo/body wash stating they cause itchiness. No other complaints, patient is happy. VSS, afebrile.
--- NOTE | 2019-11-22 21:30 | NUR ---
ASSUMED CARE:VALERIA IS LAYING IN BED. DENIES ANY NEEDS OR COMPLAINTS. LUNG SOUNDS ARE CLEAR BUT DIMINISHED, NO COUGH OR CONGESTION. HR SINUS. ABDOMIN SLIGHT DISTENTION STATES IS HER NORM, GUARDED, HYPOACTIVE, PASSING FLATUS, BM NORMAL. ENCOURAGED TO NOT FLUSH BM FOR RN TO ASSESS IF SHE HAS ONE. NO NAUSEA. INDEPENDENT IN THE ROOM. MEDS GIVEN PER EMAR. CALL LIGHT IN REACH.
--- NOTE | 2019-11-23 05:38 | NUR ---
SHIFT SUMMARY: AOX3, INDEPENDENT IN THE ROOM. VS WNL, AFEBRILE. NO BM THIS SHIFT. SLEPT THROUGHOUT THE NIGHT WITH NO ACUTE CHANGES OR CONCERNS. CALL LIGHT REMAINED IN REACH AND USED APPROPRIATLY.
--- NOTE | 2019-11-23 17:41 | NUR ---
SHIFT SUMMARY PT IS A&O AND INDEPENDENT IN ROOM. PT HAS NOT COMPLAINED OF N/V/P DURING SHIFT. PT ENCOURAGED TO CHANGE POSITIONS WHILE WATCHING TV IN BED. PT TOOK SHOWER IN AFTERNOON. PT HAS HAD GOOD APPITITE FOR MEALS. PT CURENTLY IN ROOM EATING DINNER WITH CALL LIGHT WITH IN REACH.
--- NOTE | 2019-11-23 22:04 | NUR ---
1930 PT RESTING COMFORTABLY IN BED; CHEERFUL; ALERT AND ORIENTED X 2. 1999 PT TOOK ALL H.S. MEDS WHOLE IN APPLESAUCE.
--- NOTE | 2019-11-24 04:07 | NUR ---
SHIFT SUMMARY: 64 Y/O FEMALE RESTED COMFORTABLY IN BED; PT ALERT AND ORIENTED X 2, ABLE TO FOLLOW VERY SIMPLE VERBAL COMMANDS; DENIES PAIN OR NAUSEA; PT AWAITING PLACEMENT INTO [facility] OR SNF AT THIS TIME; BED LOW POSITION WITH CALL LIGHT AT SIDE.
[2019-11-24 04:31] LABS: BASOPHILS ABSOLUTE AUTO 0.03 K/mm3 (0.00-0.23); BASOPHILS PERCENT AUTO 1 % (0-2); EOSINOPHILS ABSOLUTE AUTO 0.16 K/mm3 (0.00-0.68); EOSINOPHILS PERCENT AUTO 3 % (0-6); Hematocrit 31.9 % (33.0-51.0); Hemoglobin 9.5 g/dL (11.5-16.0); IMMATURE GRAN ABSOLUTE AUTO 0.01 K/mm3 (0.00-0.10); IMMATURE GRAN PERCENT AUTO 0 % (0-1); LYMPHOCYTES ABSOLUTE AUTO 4.04 K/mm3 (0.84-5.20); LYMPHOCYTES PERCENT AUTO 64 % (21-46); MONOCYTES ABSOLUTE AUTO 0.43 K/mm3 (0.16-1.47); MONOCYTES PERCENT AUTO 7 % (4-13); Mean Corpuscular HGB 29.1 pg (26.0-34.0); Mean Corpuscular HGB Conc 29.8 g/dL (31.5-36.5); Mean Corpuscular Volume 98 fL (80-100); Mean Platelet Volume 11.8 fL (9.1-12.4); NEUTROPHILS ABSOLUTE AUTO 1.63 K/mm3 (1.96-9.15); NEUTROPHILS PERCENT AUTO 26 % (41-73); Platelet Count 206 K/mm3 (150-400); RDW Coefficient Variation 17.3 % (11.7-14.2); RDW Standard Deviation 63.4 fL (35.1-46.3); Red Blood Cell Count 3.26 M/mm3 (3.80-5.20)
[2019-11-24 05:00] LABS: Alanine Aminotransfer (ALT/SGP 32 U/L (12-78); Albumin, Blood 2.7 g/dL (3.4-5.0); Alk Phos 60 U/L (50-136); Anion Gap 4 mmol/L (6-16); Aspartate Aminotrans (AST/SGOT 14 U/L (12-37); Bilirubin, Total 0.3 mg/dL (0.1-1.0); Blood Urea Nitrogen 25 mg/dL (8-24); Bun/Creatinine Ratio 30.1 (12.0-20.0); CO2, Blood 28 mmol/L (21-32); Calcium, Blood 8.1 mg/dL (8.5-10.1); Chloride, Blood 110 mmol/L (98-108); Creatinine, Blood 0.83 mg/dL (0.40-1.00); Globulin, Blood 2.8 g/dL (2.2-4.0); Glomerular Filtration Rate >60 (60-); Glucose, Blood 82 mg/dL (70-99); Potassium, Blood 4.7 mmol/L (3.5-5.5); Sodium, Blood 142 mmol/L (136-145); Total Protein, Blood 5.5 g/dL (6.4-8.2)
--- NOTE | 2019-11-24 17:41 | NUR ---
SHIFT SUMMARY PT IS A&OX2. PT HAS BEEN RESTING IN ROOM DRUING DAY. PT DENIES P/N/V. PT HAS HAD A GOOD APPITIE TODAY FOR ALL THREE MEALS. PT TOOK MORNING MEDICATION CRUSHED IN APPLESAUCE. PT STATED IT IS EASIER FOR HER TO TAKE THEM THAT WAY. PT ABLE TO FOLLOW SIMPLE COMMANDS. [facility] IS WAITING FOR GUARDIANSHIP AND PLACEMENT. PT IS FINSHING HER DINNER. BED IN LOW POSITION AND CALL LIGHT W/IN REACH.
--- NOTE | 2019-11-25 06:44 | NUR ---
SHIFT SUMMARY NO ACUTE CHANGES THIS SHIFT. AOX2-3; HX DEMENTIA & DEVELOP DELAY. FOLLOWS DIRECTIONS & ANSWERS YES/NO QUESTIONS APPROPRIATE. VSS. DENIES N/V, PAIN OR DYSPNEA. IND IN ROOM. AWAITING PLACEMENT. CALL LIGHT IN REACH.
--- NOTE | 2019-11-25 16:05 | NUR ---
SUMMARY PT IS A/O X3, HX MENTAL ILLNESS, DEVELOPMENTAL DELAY. SHE IS UP IND. MEDICALLY STABLE @ THIS TIME. SHE STATE "I FEEL OK" THIS AM, NO DISCOMFORT. 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 DR VALDEZ ROUNDED THIS AM STATE NO NEW ORDERS, NO PLACEMENT TODAY R/T HOLIDAY. PT IS PLEASANT/COOPERATIVE T/O DAY. VSS.
--- NOTE | 2019-11-26 05:39 | NUR ---
SHIFT SUMMARY NO ACUTE CHANGES THIS SHIFT. VSS. AOX3, HX DEVELOP DELAY. DENIES PAIN, NAUSEA, DYSPNEA. AWAITING PLACEMENT. IND IN ROOM, MEDICALLY STABLE. CALL LIGHT IN REACH. WCTM.
--- NOTE | 2019-11-26 17:48 | NUR ---
SUMMARY PT HAS BEEN PLEASANT/COOPERATIVE w NO REPORTS OF DISCOMFORT T/O DAY. SHE HAS BEEN DRAWING, WATCHING TV, NAPPING. UP IN CHAIR FOR ALL MEALS. IND IN ROOM. VSS. MEDICALLY STABLE. SOCSERV & DORMITORY MAID CONTINUE TO WORK ON SAFE PLACEMENT.
--- NOTE | 2019-11-27 04:11 | NUR ---
SHIFT SUMMARY ASSUMED CARE OF PT AT 1900. PT IS A/OX2, DENIES N/T IN EXTREMITES. HEART SOUNDS REGULAR, LUNG SOUNDS DIMINISHED, DENIES CP/SOB. PT HAS SLEPT T/O THE NIGHT. NO ACUTE EVENTS. CALL LIGHT IN REACH, BED IN LOWEST POSTION.
--- NOTE | 2019-11-27 19:36 | NUR ---
SHIFT SUMMARY PT WALKING IN HALLWAY WITH INSOLVENCY PRACTITIONER THIS AFTERNOON. HAS HAD NO ISSUES. REPORT CONDITION TO ONCOMING SHIFT.
--- NOTE | 2019-11-28 04:19 | NUR ---
SHIFT SUMMARY A/O, ABLE TO MAKE NEEDS KNOWN. COOPERATIVE WITH CARE. ANSWERS QUESTIONS APPROPRIATELY. NO C/O PAIN/DISCOMFORT. APPEARED TO REST MUCH OF THE NIGHT. NO ACUTE CHANGES NOTED OVERNIGHT. BED IN LOWEST POSITION. CALL LIGHT AND BELONGINGS WITHIN REACH. WCTM. REPORT TO ONCOMING RN.
--- NOTE | 2019-11-28 18:29 | NUR ---
SHIFT SUMMARY NO ACUTE CHANGES TO PRESENT THIS SHIFT. PT CONTINUES TO WAIT GUARDIANSHIP AND PLACEMENT. INDEPENDENT IN . NO C/O. MEDS CRUSHED IN APPLESAUCE PER PT REQUEST. CALL LT IN REACH.
--- NOTE | 2019-11-29 04:43 | NUR ---
SHIFT SUMMARY A/O, ABLE TO MAKE NEEDS KNOWN. COOPERATIVE WITH CARE. ANSWERS QUESTIONS APPROPRIATELY. NO C/O PAIN/DISCOMFORT. SBA FOR AMBULATION IN HALLWAYS; INDEPENDENT IN THE ROOM. VSS/AFEBRILE. AWAITING PLACEMENT. NO ACUTE CHANGES NOTED. APPEARED TO REST MUCH OF THE NIGHT. BED REMAINED IN LOWEST POSITION. CALL LIGHT AND BELONGINGS WITHIN REACH. WCTM. REPORT TO ONCOMING RN.
--- NOTE | 2019-11-29 17:30 | NUR ---
NO ACUTE CHANGES THIS SHIFT. PATIENT IS CALM AND COOPERATIVE WITH CARE. UP INDEPENDENTLY TO RESTROOM. CALLS APPROPRIATELY FOR ASSISTANCE. CONTINUES TO AWAIT PLACEMENT.
--- NOTE | 2019-11-30 04:23 | NUR ---
SHIFT SUMMARY: VSS. AFEB. AA0X3. ABLE TO MAKE NEEDS KNOWN. PLEASANT AND COOPERATIVE. ABD SOFT, NON-TENDER, NON-DISTENDED. REPORTS BM ON 11/28. SLEEPING WELL THROUGH THE NIGHT. NO CURRENT CONCERNS.
--- NOTE | 2019-11-30 18:12 | NUR ---
NO ACUTE CHANGES THIS SHIFT. PATIENT AWAITING GUARDIANSHIP AND PLACEMENT. VSS, ON RA. INDEPENDENT TO RESTROOM. WALKED IN HALLS TO DAY WITH FWW AND SBA. PLEASANT AND COOPERATIVE WITH CARE.
--- NOTE | 2019-12-01 04:39 | NUR ---
SHIFT SUMMARY PT HAS HAD NO ACUTE CHANGES THIS SHIFT. PT IS A&O, IS IND-SBA IN ROOM. CALLS APPROPRIATELY. PT HAS BEEN SLEEPING T/O THE NIGHT. NO APPARENT DISTRESS OR NEEDS AT THIS TIME. PT HAS EYES CLOSED, CHEST RISING AND FALLING. SNORING HEARD. CALL LIGHT AND PERSONAL ITEMS WITHIN REACH. WILL CONTINUE TO MONITOR UNTIL REPORT GIVEN TO DAY RN.
--- NOTE | 2019-12-01 18:13 | NUR ---
NO ACUTE CHANGES THIS SHIFT. PATIENT AWAITING GUARDIANSHIP AND PLACEMENT. TOLERATING DIET. UP INDEPENDENT TO RESTROOM. NO IV SITE. PLEASANT AND COOPERTIVE WITH CARE.
--- NOTE | 2019-12-02 04:21 | NUR ---
SHIFT SUMMARY ASSUMED CARE OF PT AT 1900. PT IS A/OX2, DENIES N/T IN EXTREMITES. LUNG SOUNDS DIMINISHED, HEART SOUNDS REGULAR. PT DENIES ANY NEW SYMPTOM BUT C/O HER THROAT HURTING BECAOUSE OF THE SMOKE. PT WAS GIVEN TEA AND WATER. NO ACUTE EVENTS DURING THE NIGHT. PT SLEPT T/O THE NIGHT.
--- NOTE | 2019-12-02 17:50 | NUR ---
SHIFT SUMMARY PT AWAITING PLACEMENT WITH CARE MANAGEMENT INVOLVED. NO CHANGES IN ASSESSMENT AT THIS TIME. VS REVIEWED. PT GIVEN SHOWER THIS SHIFT BY AIDE. IND IN ROOM AND DENIES PAIN T/O SHIFT. WILL CONTINUE TO MONITOR UNTIL TURNOVER IS COMPLETE.
--- NOTE | 2019-12-03 05:22 | NUR ---
SUMMARY PT HAD NO ISSUES. PT IN [facility] AND WALKED THE FLOOR THIS SHIFT. PT SLEPT T/O SHIFT. PT CURRENTLY SLEEPING IN NO DISTRESS. CALL LIGHT IN REACH
--- NOTE | 2019-12-03 17:33 | NUR ---
SHIFT SUMMARY NO CHANGES IN ASSESSMENT AT THIS TIME. VS REVIEWED. AFEBRILE. PT IND IN ROOM, TAKING SELF TO BATHROOM T/O DAY. CARE PLANNING WORKING ON DC PLAN. WILL CONTINUE TO MONITOR UNTIL TURNOVER IS COMPLETE
--- NOTE | 2019-12-04 04:07 | NUR ---
SUMMARY PT HAD NO ISSUES NOTED. PT HAS SLEPT T/O SHIFT. PT CURRENTLY SLEEPING AND IN NO DISTRESS. CALL LIGHT IN REACH.
--- NOTE | 2019-12-04 18:29 | NUR ---
SHIFT SUMMARY. PT A&Ox3-4. PT HAS HX OF DEVELOPMENTAL DELAY, HOWEVER NO OBVIOUS BEHAVIOUR OBSERVED TODAY. PT PLEASANT AND COOPERATIVE WITH CARE. INDEPENDENT IN ROOM. DENIES N/V AND PAIN TODAY. TOLERATING [facility] SOFT DIET WELL. DC PLANS SECURED FOR [facility] ON 12/06/19. VITALS REVIEWED. PT RESTING COMFORTABLY IN BED WITH CALL LIGHT IN REACH.
--- NOTE | 2019-12-05 03:56 | NUR ---
SHIFT SUMMARY PT HAD UNEVENTFUL NIGHT. SLEPT WELL. CONTINENT. UP INDEPENDENT TO THE BATHROOM. DENIED ANY PAIN OR DISCOMFORT. SOME DEVELOPEMENTAL DELAY NOTED. HOWEVER, PT IS A/O X 4 AND PLEASANT AND COOPERATIVE WITH CARE. AWAITING PLACEMENT. PT REPORTS THAT SHE "GETS TO GO" ON MONDAY AND IS LOOKING FORWARD TO THIS. NO ACUTE CHANGES THIS SHIFT. VITAL SIGNS STABLE. WILL CONTINUE TO MONITOR AND REPORT TO DAY RN.
[2019-12-05 08:21] LABS: BASOPHILS ABSOLUTE AUTO 0.04 K/mm3 (0.00-0.23); BASOPHILS PERCENT AUTO 1 % (0-2); EOSINOPHILS ABSOLUTE AUTO 0.17 K/mm3 (0.00-0.68); EOSINOPHILS PERCENT AUTO 3 % (0-6); Hematocrit 37.8 % (33.0-51.0); Hemoglobin 11.3 g/dL (11.5-16.0); IMMATURE GRAN ABSOLUTE AUTO 0.01 K/mm3 (0.00-0.10); IMMATURE GRAN PERCENT AUTO 0 % (0-1); LYMPHOCYTES ABSOLUTE AUTO 3.45 K/mm3 (0.84-5.20); LYMPHOCYTES PERCENT AUTO 55 % (21-46); MONOCYTES ABSOLUTE AUTO 0.41 K/mm3 (0.16-1.47); MONOCYTES PERCENT AUTO 7 % (4-13); Mean Corpuscular HGB 28.8 pg (26.0-34.0); Mean Corpuscular HGB Conc 29.9 g/dL (31.5-36.5); Mean Corpuscular Volume 96 fL (80-100); Mean Platelet Volume 12.2 fL (9.1-12.4); NEUTROPHILS PERCENT AUTO 35 % (41-73); Platelet Count 158 K/mm3 (150-400); RDW Coefficient Variation 16.3 % (11.7-14.2); RDW Standard Deviation 58.4 fL (35.1-46.3); Red Blood Cell Count 3.92 M/mm3 (3.80-5.20); White Blood Cell Count 6.28 K/mm3 (4.00-11.30)
[2019-12-05 08:50] LABS: Alanine Aminotransfer (ALT/SGP 38 U/L (12-78); Albumin, Blood 3.3 g/dL (3.4-5.0); Alk Phos 68 U/L (50-136); Anion Gap 5 mmol/L (6-16); Aspartate Aminotrans (AST/SGOT 17 U/L (12-37); Bilirubin, Total 0.5 mg/dL (0.1-1.0); Blood Urea Nitrogen 23 mg/dL (8-24); Bun/Creatinine Ratio 27.8 (12.0-20.0); CO2, Blood 29 mmol/L (21-32); Chloride, Blood 110 mmol/L (98-108); Creatinine, Blood 0.83 mg/dL (0.40-1.00); Globulin, Blood 3.4 g/dL (2.2-4.0); Glomerular Filtration Rate >60 (60-); Glucose, Blood 87 mg/dL (70-99); Potassium, Blood 4.4 mmol/L (3.5-5.5); Sodium, Blood 144 mmol/L (136-145); Total Protein, Blood 6.7 g/dL (6.4-8.2)
--- NOTE | 2019-12-05 18:11 | NUR ---
SHIFT SUMMARY: NO ACUTE CHANGES THIS SHIFT. PT HAD CT ABD/PELVIS COMPLETED THIS AFTERNOON. SHE IS EAGER TO DISCHARGE, HOPEFULLY TO [facility] TOMORROW. SHE IS EATING AND DRINKING WELL; ABLE TO AMBULATE IN ROOM INDEPENDENTLY WITH STEADY GAIT. VITAL SIGNS STABLE. CURRENTLY SITTING IN ROOM EATING DINNER, CALL LIGHT IN REACH. WILL CONTINUE TO MONITOR AND REPORT TO ONCOMING RN.
--- NOTE | 2019-12-06 04:35 | NUR ---
SHIFT SUMMARY NO ACUTE CHANGES THIS SHIFT. PT SLEPT WELL THROUGHOUT MOST OF THE NIGHT. REMAINED INDEPENDENT IN THE ROOM. STEADY ON FEET, TRANSFERED WELL TO RESTROOM AND BACK TO BED. PT DENIED ANY PAIN OR DISCOMFORT. VITAL SIGNS STABLE. PLAN FOR PLACEMENT AT [facility] TODAY. PT IS LOOKING FORWARD TO PLACEMENT. WILL CONTINUE TO MONITOR AND REPORT TO DAY RN.
[2019-12-06] MEDS ORDERED: ASCO500 PO (10:35)
[2019-12-06] MEDS ORDERED: FERSU300 PO (10:36)
[2019-12-06] MEDS ORDERED: Vitamin B-121000 MCG PO (10:36)
[2019-12-06] MEDS ORDERED: OLAN5A MM (10:37)
[2019-12-06] MEDS ORDERED: DOCUZEN 8.6-501 EACH PO (10:55)
[2019-12-06] MEDS ORDERED: MIRALAX17 GM PO (11:03)
--- NOTE | 2019-12-06 11:08 | NUR ---
Visited with Carli this morning. She is dressed and sitting up on the EOB. She is very excited that she will be moving into her new home today. Her guardian, Leatha, will be here at 1 pm to pick her up. She denies any symptoms at this time. She states she has some art supplies that she rec'd here that she will be taking with her to her new home. She reports that she has gained 20 pounds since she was admitted. Her weight on the bedscale today is 44.3 kg. She has no questions and is hoping the next couple hours goes by quickly.
--- NOTE | 2019-12-06 13:24 | NUR ---
PT DISCHARGED FROM THE UNIT LEFT VIA WHEELCHAIR. MEDICATIONS FAXED TO THE PHARMACY, DISCHARGE INSTRUCTIONS REVIEWED, FOLLOW UP APTS SCHEDULED. INSTRUCTIONS REVIEWED WITH PT AND CAREGIVER.
== END 2019-12-06 13:52 | disposition home or self-care (01) | DRG 374 ==
LOC: ER 17:54 → MEDS 17:55 → ER 17:55 → MEDS 21:42 → ENPENDDIS 12-06 10:31 → MEDS 12-06 13:52
PROVIDERS: Emergency Medicine; Internal Medicine; Physician Assistant; ADMIT Hospitalist
DX: C18.4 Malignant neoplasm of transverse colon (principal); E43 Unspecified severe protein-calorie malnutrition; C91.10 Chronic lymphocytic leukemia of B-cell type not having achieved remission; K59.00 Constipation, unspecified; F79 Unspecified intellectual disabilities; R91.1 Solitary pulmonary nodule; F03.90 Unspecified dementia, unspecified severity, without behavioral disturbance, psychotic disturbance, mood disturbance, and anxiety; Z51.5 Encounter for palliative care; E53.8 Deficiency of other specified B group vitamins; R11.2 Nausea with vomiting, unspecified
CPT/HCPCS: 36415; 51702; 71045; 71260; 74176; 74177; 80048; 80053; 80069; 81001; 82607; 82728; 82746; 83540; 83550; 83735; 84443; 84484; 85025; 85027; 85651; 92523; 92610; 93005; 93010; 94664; 94667; 94760; 96372; 98960; 99285-25; A9270; G0378; J1650; J2405; J3411; J3420; J3475; J7042; Q9967

== ENCOUNTER 2020-05-06 10:41 | Observation (INO) | payer OTHER ==
[~2020-05-06] VITALS: Ht 157.5 cm; Wt 34.0 kg
[~2020-05-06 10:41] MED LIST changes: +ASCO500 PO; +FERSU300 PO; +OLAN5A MM; +Vitamin B-121000 MCG PO
[2020-05-06 11:10] LABS: Hematocrit 42.4 % (33.0-51.0); Mean Corpuscular HGB 31.6 pg (26.0-34.0); Mean Corpuscular Volume 96 fL (80-100); Mean Platelet Volume 12.2 fL (9.1-12.4); Platelet Count 199 K/mm3 (150-400); RDW Coefficient Variation 15.9 % (11.7-14.2); RDW Standard Deviation 56.8 fL (35.1-46.3); Red Blood Cell Count 4.43 M/mm3 (3.80-5.20); White Blood Cell Count 29.64 K/mm3 (4.00-11.30)
[2020-05-06 11:28] LABS: Alanine Aminotransfer (ALT/SGP 16 U/L (12-78); Albumin, Blood 2.5 g/dL (3.4-5.0); Albumin/Globulin Ratio 0.8 (0.8-1.8); Alk Phos 60 U/L (50-136); Anion Gap 15 mmol/L (6-16); Aspartate Aminotrans (AST/SGOT 17 U/L (12-37); Bilirubin, Total 0.9 mg/dL (0.1-1.0); Blood Urea Nitrogen 18 mg/dL (8-24); Bun/Creatinine Ratio 32.4 (12.0-20.0); CO2, Blood 21 mmol/L (21-32); Calcium, Blood 7.9 mg/dL (8.5-10.1); Chloride, Blood 98 mmol/L (98-108); Creatinine, Blood 0.56 mg/dL (0.40-1.00); Globulin, Blood 3.3 g/dL (2.2-4.0); Glomerular Filtration Rate >60 (60-); Glucose, Blood 66 mg/dL (70-99); Sodium, Blood 134 mmol/L (136-145); Total Protein, Blood 5.8 g/dL (6.4-8.2)
[2020-05-06 12:34] LABS: BASOPHILS PERCENT MAN 0 % (0-2); EOSINOPHILS PERCENT MAN 0 % (0-6); LYMPHOCYTES ABSOLUTE MAN 24.89 K/mm3 (0.84-5.20); LYMPHOCYTES PERCENT MAN 84 % (21-46); MONOCYTES ABSOLUTE MAN 0.29 K/mm3 (0.16-1.47); MONOCYTES PERCENT MAN 1 % (4-13); NEUTROPHILS ABSOLUTE MAN 4.44 K/mm3 (1.96-9.15); SEG NEUTROPHILS PERCENT MAN 15 % (41-73); TOTAL CELLS COUNTED 100
--- NOTE | 2020-05-06 13:51 | NUR ---
ED Palliative Care Consult Spoke with Dr Winslow and discussed case. Pt would benefit from further discussions regarding goals of care. Pt currently living at [place] on the independent level. Pt cachectic and frail. Pt's medical history and comorbidities include: Bipolar Disorder, Intellectual Disability, Adenocarnimo S/P hemecolectomy, COPD, and CLL. Pt resting on gurney upon arrival. Pt is known to this filing writer from previous hospital stays. Pt is A&O and denies pain at this time. Pt soft spoken and slow to respond. Discussed hospice with Pt and philosophy of hospice. Pt is in agreement. Offered therapeutic listening with Pt having no concerns at this time. Called and spoke with Pt's guardian Jessica. Jessica confirms goal of hospice. [facility] has been contacted and can admit on Monday. Jessica reports facility needs to assess Pt to determine if she is appropriate to move to the assisted living floor. Jessica reports no other concerns at this time and expresses appreciation of call. Spoke with ED Sap Technical Developer Kassie and discussed case. Kassie currently working on disposition. Palliative Care will remain available.
--- NOTE | 2020-05-06 18:40 | NUR ---
ADMIT NOTE/SHIFT SUMMARY- PT ADMITTED THROUGH THE ED. PT STATED NO PAIN, HAD A SMILE AND CONVEYED SHE JUST WANTS TO SLEEP. CHANGED HER INTO A GOWN PLACED MULTIPLE PILLOWS T/O THE PT BED, APPLIED 2 WARM BLANKETS AND TUCKED HER IN. NO S&S OF DISTRESS NOTED AT THE TIME OF ADMIT. PT ON ROOM AIR, WAKES TO STAFF QUESTIONS AND SPEAKS IN A QUIET VOICE, BUT FAIRLY CLEARLY AT THIS TIME. WILL PASS ON TO NIGHT RN IN BEDSIDE REPORT.
--- NOTE | 2020-05-07 05:41 | NUR ---
PATIENT SLEPT WELL OVERNIGHT. SHE WAS QUITE COMFORTABLE IN BED BEING FLOATED WITH PILLOWS FROM SHOULDERS TO FEET. SANDEEP IS EXTREMELY CACHECTIC. HIPS, SPINE, SACRUM AND SHOULDERS ARE ALL SKIN TO BONE AND RED FROM THE SLIGHTEST PRESSURE. NO OPEN AREAS NOTED ON SKIN. PATIENT TOLERATES ROXYNOL WELL AND HAS AN IV FOR ANY NEEDED IV MEDICATIONS. VERY SMALL GREYISH JELLY PER RECTUM WHEN CHANGED FOR SMALL INCONTINENCE OF URINE. (ONLY ONE VOID OVERNIGHT.)
--- NOTE | 2020-05-07 10:52 | NUR ---
Comfort Care Visit Pt resting in bed with her eyes closed. Pt appears comfortable with no S/S of distress at this time. This RN did not disturb Pt at this time. Spoke with Bedside RN Irma and discussed case. Palliative Care will remain available.
--- NOTE | 2020-05-07 17:04 | NUR ---
Spiritual care note: Ms. zaragoza is very frail looking. She smiles easily and appeared to enjoy companionship. Facilitated story-telling and expressions of gratitude. She tells me that she feels well loved and cared-for at [place] and is looking forward to returning. She does ont appear to understand her illness and denies pain/concerns. She was grateful for prayer/visit. Experimental Flight Test Mechanic services will remain available.
--- NOTE | 2020-05-07 18:19 | NUR ---
SHIFT SUMMARY- PT IS ALERT, PLESANT AND COOPERATIVE. SHE IS EATING AND DRINKIN SMALL AMOUNTS THIS SHIFT. SHE SLEPT FOR MUCH OF THIS SHIFT. SHE DENIES PAIN. REFUSED HER STOOL SOFTENER. SPOKE WITH SHAMEKA IN PALATIVE CARE, SHE WILL POSSIBLY GO HOME TO [place] WITH HOSPICE TOMORROW. HER BED IS IN THE LOW POSITION AND CALL LIGHT IS WITIN REACH.
--- NOTE | 2020-05-08 05:36 | NUR ---
Carli didn't sleep as well as she did the previous night, however, she appeared much more comfortable and relaxed. Skin remains intact, and patient is tolerating repositioning quite well. She really likes cold Vitamin D milk, and will drink large quantities quickly if not attended.
[2020-05-08] MEDS ORDERED: ACET325 PO (10:56)
[2020-05-08] MEDS ORDERED: ACET120S PR (10:59)
[2020-05-08] MEDS ORDERED: Oxycodone HCl20 M1 SL (11:06)
[2020-05-08] MEDS ORDERED: PROM12.5S PR (11:09)
[2020-05-08] MEDS ORDERED: PROM25 PO (11:10)
--- NOTE | 2020-05-08 14:39 | NUR ---
DISCHARGED:left with ambulance crew, dianna emerson informed of status, hospice interviewed pt and she stated she still wanted treatments and would want something done if she were not breathing, alert and orintated to self and location, cheerful and very greatful for any attention, iv removed, rm air, very happy to see the ambulance crew whom she thought she recognized, looked around for all belongings and sent them with her along with the discharge information
== END 2020-05-08 14:19 ==
LOC: ER 10:41 → MEDS 10:42
PROVIDERS: Emergency Medicine; ADMIT Internal Medicine
DX: Z51.5 Encounter for palliative care (principal); C91.10 Chronic lymphocytic leukemia of B-cell type not having achieved remission; C78.00 Secondary malignant neoplasm of unspecified lung; F79 Unspecified intellectual disabilities; E43 Unspecified severe protein-calorie malnutrition; J44.9 Chronic obstructive pulmonary disease, unspecified; D64.9 Anemia, unspecified; C83.50 Lymphoblastic (diffuse) lymphoma, unspecified site; C18.9 Malignant neoplasm of colon, unspecified; R11.2 Nausea with vomiting, unspecified; E86.0 Dehydration; Z90.49 Acquired absence of other specified parts of digestive tract; Z87.891 Personal history of nicotine dependence
CPT/HCPCS: 80053; 85025; 96374; 96375; 96376; 99285-25; A9270; G0378; J1170; J2405; J7030

== ENCOUNTER 2020-05-11 10:50 | Emergency (ER) | payer OTHER ==
[~2020-05-11] VITALS: Ht 167.6 cm; Wt 40.8 kg
[~2020-05-11 10:50] MED LIST changes: +ACET120S PR; +ACET325 PO; +Oxycodone HCl20 M1 SL; +PROM12.5S PR; +PROM25 PO
[2020-05-11] MEDS ORDERED: ATIVAN0.5 MG PO (11:13)
[2020-05-11] MEDS ORDERED: Atropine Su0.1 MG/ML SL (11:14)
[2020-05-11] MEDS ORDERED: MORP20L SL (11:16)
--- NOTE | 2020-05-11 12:08 | NUR ---
ED Palliative Care Consult Spoke with Dr Justice and discussed case. Goals of care discussion may be beneficial. Pt resting on gurney upon arrival. Pt is A&O and denies pain at this time. Pt reports mild nausea. Pt is cachectic and appears frail. Pt is known to this specification writer from previous hospital stays. Engaged in therapeutic discussion regarding goals of care. Discussed comfort and hospice with Pt being in agreement. Pt is agreeable to D/C from ED today with goal of hospice. Spoke with ED Hot Strip Mill Inspector Kassie and discussed case. Kassie spoke with anna Lopez who is agreeable with plan. Staff and [facility] is also in agreement. Plan: Pt to D/C back to [place] with [facility] to admit onto services on Monday. Palliative Care will remain available.
--- NOTE | 2020-05-11 13:35 | NUR ---
Received call from [facility] absence management consultant Anastacio and discussed case including availability to admit Pt onto services. Pt resting on gurney upon arrival and is moaning. Pt's guardian Jessica at bedside. Discussed goals of care with Jessica. Jessica reports being in agreement with back to [facility] with hospice and is agreeable with [facility]. Jessica also completes POLST with Pt's wishes for DNR and Comfort Measures Only. Offered therapeutic listening and answered questions. Pt's FLACC score of 3/[address] Justice and reported Pt's pain. Dr Justice will order pain medication. Dr Justice also signs POLST. Spoke with ED Emergency Nurse Kassie [facility] Leah Goodson and discussed case. [facility] will admit Pt onto services this evening. Palliative Care will remain available.
--- NOTE | 2020-05-11 13:55 | NUR ---
Late entry from previous visit. Obtained copies of POLST. Provided [facility] Liason copy, and copy to guardian Jessica. Original will go back with Pt. Will deliver copy to medical records.
== END 2020-05-11 16:32 | disposition home or self-care (01) ==
LOC: ER 10:50
DX: R62.7 Adult failure to thrive (principal); C18.9 Malignant neoplasm of colon, unspecified; C78.02 Secondary malignant neoplasm of left lung; C78.01 Secondary malignant neoplasm of right lung; R10.9 Unspecified abdominal pain; J44.9 Chronic obstructive pulmonary disease, unspecified; Z51.5 Encounter for palliative care; Z68.1 Body mass index [BMI] 19.9 or less, adult; Z79.899 Other long term (current) drug therapy
CPT/HCPCS: 99285; A9270